=== PATIENT | male | born 1960 | race African-American/Black ===

== ENCOUNTER 2019-09-25 19:28 | Emergency (ER) | payer MEDICARE, MEDICAID, SELFPAY ==
[2019-09-25 19:23] VITALS: BP 148/87; PULSE 70; RESP 17; TEMP 36.9; O2SAT 97
--- NOTE | 2019-09-25 19:33 | ED.UPPEXIN ---
HPI - Extremity Injury (Upper) General Chief Complaint: Extremity Injury, Upper <Landen Carr PA-C - Last Filed: 09/26/19 17:44> Stated Complaint: wound <MARIA ANTONIA Cramer Last Filed: 09/26/19 17:44> Time Seen by Provider: 09/25/19 19:37 <Landen Carr PA-C - Last Filed: 09/26/19 17:44> Source: patient <MARIA ANTONIA Cramer Last Filed: 09/26/19 17:44> Mode of arrival: ambulatory <MARIA ANTONIA Cramer Last Filed: 09/26/19 17:44> Limitations: no limitations <MARIA ANTONIA Cramer Last Filed: 09/26/19 17:44> History of Present Illness HPI narrative: Patient presents with chief complaint of wanting evaluation of his right hand after being bit by spider 5 days ago. Patient states that he was at the half-way and told them about his spider bite and left leg swelling but they do nothing for him. He states he finally got them to send him to the emergency department. Patient states that he was treated with antibiotics and a injection which may have been tetanus and he no longer has swelling or redness to the area. Patient states he also has swelling to his left foot which is chronic when he is active because he needs a knee replacement. He states he did a lot of walking the past few days and that is why he has swelling. Patient denies chest pain, shortness of breath, nausea, vomiting,, fever, chills or any other symptoms. <Landen Carr PA-C - Last Filed: 09/26/19 17:44> Related Data Allergies/Adverse Reactions: Allergies Allergy/AdvReac Type Severity Reaction Status Date / Time No Known Allergies Allergy Verified 09/25/19 19:43 <Landen Carr PA-C - Last Filed: 09/26/19 17:44> Review of Systems Review of Systems: Narrative: CONSTITUTIONAL: Denies fever, chills, or sweats. EYES: Denies visual changes, redness, or discharge. ENT: Denies rhinorrhea, congestion, sore throat, or otalgia. CARDIOVASCULAR: Denies chest pain, palpitations, or edema. RESPIRATORY: Denies cough or dyspnea. GASTROINTESTINAL: Denies abdominal pain, nausea, vomiting, or diarrhea. GENITOURINARY: Denies dysuria or hematuria. SKIN: Denies rash or itching. MUSCULOSKELETAL: Reports left leg swelling. denies back pain, joint pain, or myalgia. NEUROLOGIC: Denies headache, numbness, dizziness, or weakness. PSYCHIATRIC: Denies anxiety or depression. <Landen Carr PA-C - Last Filed: 09/26/19 17:44> [facility] Social History Social History: Social History Gender identity (if verbalized by the patient): Male <Landen Carr PA-C - Last Filed: 09/26/19 17:44> Exam Narrative: Exam Narrative: GENERAL: Well-appearing, well-nourished, and in no acute distress. HEAD: Normocephalic, atraumatic. EYES: PERRLA and EOMI. ENT: Nares clear, no rhinorrhea or epistaxis. Mucous membranes moist. Oropharynx without tonsillar hypertrophy exudate or other lesions. Bilateral TMs pearly rose nonbulging NECK: Supple. No adenopathy or masses. No carotid bruits or JVD CHEST: Clear to auscultation. No respiratory distress. No wheezes rales or rhonchi HEART: Regular rate and rhythm. No murmur heard. Normal peripheral pulses. ABDOMEN: Soft, nontender, nondistended, normal active bowel sounds. EXTREMITIES: Normal range of motion. No edema. SKIN: Warm, dry, no rash. There are no signs of insect bite, cellulitis, erythema or ecchymosis noted to the patient's dorsal aspect of the hand where he states he was bitten by a spider. There is mild swelling to the patient lower left extremity. No signs of cellulitis, gout, erythema or ecchymosis. No open wounds or weeping. NEURO: No focal deficits. Alert and oriented x3. PSYCH: Normal mood and affect. <Landen Carr PA-C - Last Filed: 09/26/19 17:44> Course Vital Signs Vital signs: Vital Signs Temperature 36.9 C 09/25/19 19:23 Pulse Rate 70 09/25/19 19:23 Respiratory Rate 17 09/25/19 19:23 Blood Pressure 148/87 H 09/25/19 19:23 Pulse Oximetry 97 02
[2019-09-25] MEDS: IBUPROFEN 400 MG TABLET 800 MG PO (19:46)
== END 2019-09-25 20:14 | disposition home or self-care (01) ==
PROVIDERS: Emergency Provider Emergency Medicine
DX: T63.301A Toxic effect of unspecified spider venom, accidental (unintentional), initial encounter (principal)
CPT/HCPCS: 99283; A9270

== ENCOUNTER 2019-12-12 15:53 | Emergency (ER) | payer MEDICARE, MEDICAID, SELFPAY ==
[2019-12-12 15:57] VITALS: BP 111/66; PULSE 67; RESP 16; TEMP 36.4; O2SAT 99
--- NOTE | 2019-12-12 16:15 | PC.NURSE ---
Pt states he wants to be taken care of and to stay in a good mood. Pt states he wants his L knee wrapped professionally. Pt states he wants to get whatever he can get help with so he is taken care of and able to take care of himself. Pt states he does not want sent all over the place. Pt was at [facility] on 12/05 and given flexeril but did not fill the prescription. Pt was at [facility] 12/06 and given medication for his sinuses but did not fill it. Pt states he went to [facility] [place] and did not get seen due to doctors being out for the day. Pt states he has pain prescriptions but does not have any or does not want to take them. Pt is not being clear in his wants but has said he wants to see pediatric social worker and wants braces.
--- NOTE | 2019-12-12 16:20 | ED.GENADULT ---
HPI - General Adult General Chief complaint: Unspecified Stated complaint: wants to see a social media analyst, no pain management Time Seen by Provider: 12/12/19 15:58 History of Present Illness HPI narrative: Patient presents to the emergency room with undetermined intent. He has papers with him that he keeps waving around. He does say he could not get his medicines for a month or 2. He said that he did live in [place] and now lives in [place]. He said he did just get out of [facility] today. He has no physical complaints. He did request that we check his blood pressure. He cannot seem to focus to answer direct questions, and keeps referring to his papers. The nurse, Teofilo, got him to say that he wanted a meal, something to drink, and some tramadol to last till next Monday. Related Data Allergies Allergy/AdvReac Type Severity Reaction Status Date / Time No Known Allergies Allergy Verified 12/12/19 16:14 Review of Systems Review of Systems: Narrative: unable to get a full ROS because he rambles with his speech. I suspect he is schizophrenic. He does mention, back pain, left knee pain, and that is all I could get from him. [facility] Social History Social History (System 11/20/19 @ 11:58 by Reena Miranda) Gender identity (if verbalized by the patient): Male Exam Narrative: Exam Narrative: GENERAL: Well-appearing, well-nourished, and in no acute distress. He keeps talking and flipping his papers and will not be redirected by the nurses or myself. HEAD: Normocephalic, atraumatic. EYES: PERRLA and EOMI. ENT: Nares clear, no rhinorrhea or epistaxis. Mucous membranes moist. NECK: Supple. CHEST: Clear to auscultation. No respiratory distress. HEART: Regular rate and rhythm. No murmur heard. Normal peripheral pulses. ABDOMEN: Soft, nontender, nondistended, normal active bowel sounds. EXTREMITIES: Normal range of motion. No edema. SKIN: Warm, dry, no rash. NEURO: No focal deficits. Alert and oriented x3. PSYCH: Poor eye contact. Topics are tangential. Const: General: no acute distress and alert Course Course Emergency Course: I went back in the room to tell him that the social media analyst?manager medical was on the phone, and he said he did not want to speak to anybody he does want to be examined, but I told him he would not be able to have a social media analyst after 5 so he accepts the call. Reevaluation(s) Reevaluation #1: Back in the room after the patient talked with our transition social worker, and asked if there was anything else he needed. He said he needed to be examined and had a lot of other issues. But then he went on to talk about the dementia of his 91-year-old 's mother, and how his grandfather was a police manager in [place], and his appointment on Monday with another doctor, and I could not get him to focus on what he needed from me or from the emergency room today. I have asked the nurse to do a final assessment to see whether he could focus on anything in particular before discharge. He is homeless, and has multiple prescriptions with him, but I am unable to obtain a chief complaint or a particular request from him. Date: 12/12/19 Time: 17:09 Vital Signs Vital signs: Vital Signs Temperature 97.6 F 12/12/19 15:57 Pulse Rate 67 12/12/19 15:57 Respiratory Rate 16 12/12/19 15:57 Blood Pressure 111/66 12/12/19 15:57 Pulse Oximetry 99 12/12/19 15:57 Temperature 97.6 F 12/12/19 15:57 Pulse Rate 67 12/12/19 15:57 Respiratory Rate 16 12/12/19 15:57 Blood Pressure 111/66 12/12/19 15:57 Pulse Oximetry 99 12/12/19 15:57 Medical Decision Making [facility] Narrative Medical decision making narrative: The patient presents with multiple papers and rambling speech. The nurse was unable to obtain a chief complaint, and neither was. He has used the bathroom talked on the phone requesting food, and appears quite stable. He has been here before for knee and back pain. He sees a chronic pa
--- NOTE | 2019-12-12 16:56 | PCCCNOTE ---
Spoke with patient per phone. Patient was not very clear on what he is needing from Care Coordination. He has unorganized thoughts. I questioned him re: spouse. He stated she was in [place] and he doesn't know what she is doing now. Discussed with him homeless shelters and that he needed either cab fare or bus pass to get him to [facility]. CC told him that I could give him a list on homeless shelters, but he would have to call them and make his own arrangements. Also told him I could give him bus tokens to get to [facility]. Spoke with patient's nurse, Devyn, and provided her the list of homeless shelters and bus tokens to give to the patient.
--- NOTE | 2019-12-12 17:19 | PC.NURSE ---
pt given list of homeless shelters, food, and bus tokens
== END 2019-12-12 17:57 | disposition home or self-care (01) ==
PROVIDERS: Emergency Provider Emergency Medicine
DX: Z76.5 Malingerer [conscious simulation] (principal); G89.29 Other chronic pain; Z59.0 Homelessness
CPT/HCPCS: 99283

== ENCOUNTER 2020-11-17 13:50 | Outpatient (CLI) | payer MEDICARE, MEDICAID, SELFPAY ==
--- NOTE | ~2020-11-17 | XR_ITS ---
EXAMINATION: XR ankle LT 2V, XR tibia fibula LT 2V DATE: 11/17/2020 14:41 INDICATION: Left lower leg pain. TECHNIQUE: 1. Anteroposterior and lateral views of the left tibia and fibula were obtained. 2. Anteroposterior and lateral views of the left ankle were obtained. COMPARISON: None. FINDINGS: Bone alignment is normal. No acute fracture. Osseous excrescence along the posterior medial aspect of the distal metadiaphyseal region of the left fibula which could represent either a sessile osteochon droma, old healed fracture or heterotopic ossification related to chronic soft tissue injury. Polyart icular osteoarthritis, moderate severity at the left first metacarpophalangeal joint and likely mild to moderate severity at the medial and lateral compartments of the left knee. Additional mild osteoar thritis at the tibiotalar joint. No left ankle joint effusion. Fatty atrophy of the musculature of th e left calf. Soft tissue swelling with subcutaneous edema about the distal lower leg and about the an kle. Small plantar calcaneal spur. IMPRESSION: 1. Indolent appearing osseous excrescence at the distal fibula which could represent either an osteoc hondroma or sequela of old trauma. 2. Polyarticular osteoarthritis, moderate at the first metatarsophalangeal joint and mild to moderate at the medial and lateral components of the left knee. Reviewed, dictated and finalized at location A. IMPRESSION: 1. Indolent appearing osseous excrescence at the distal fibula which could repr esent either an osteochondroma or sequela of old trauma. 2. Polyarticular osteoarthritis, moderate at the first metatarsophalangeal join t and mild to moderate at the medial and lateral components of the left knee.
== END 2020-11-17 13:51 | disposition home or self-care (01) ==
PROVIDERS: PCP Internal Medicine; Visit Provider Internal Medicine
DX: M19.072 Primary osteoarthritis, left ankle and foot (principal); M17.12 Unilateral primary osteoarthritis, left knee
CPT/HCPCS: 73590; 73600

== ENCOUNTER 2020-11-17 14:45 | Emergency (ER) | payer MEDICARE, MEDICAID, SELFPAY ==
--- NOTE | ~2020-11-17 | US_ITS ---
EXAMINATION: US venous doppler [facility] DATE: 11/17/2020 17:27 INDICATION: Left lower limb pain. TECHNIQUE: Grayscale ultrasound images without and with compression and Doppler ultrasound images of the left lower extremity veins were obtained. COMPARISON: None. FINDINGS: The visualized portions of left common femoral vein, profunda (deep) femoral vein, femoral vein, popl iteal vein, peroneal veins, posterior tibial veins, and greater saphenous vein outflow are patent. Th ere is a small Amanda's cyst. IMPRESSION: 1. No deep venous thrombosis. 2. Small Amanda's cyst. Reviewed, dictated and finalized at location A.
[2020-11-17 16:19] VITALS: BP 148/85; PULSE 82; RESP 18; TEMP 35.9; O2SAT 99
--- NOTE | 2020-11-17 16:51 | PC.NURSE ---
ED studio operations engineer in charge at bedside with social resources for pt, informing pt that we do not give out bus passes.
[2020-11-17 17:00] VITALS: BP 177/94; PULSE 77
--- NOTE | 2020-11-17 17:12 | PC.NURSE ---
Pt in ultrasound.
--- NOTE | 2020-11-17 17:46 | PC.NURSE ---
ED charge master coordinator susie at bedside with pt community resources.
[2020-11-17] MEDS: KETOROLAC 30 MG/ML VIAL (*BKC) IM (18:12)
[2020-11-17 18:13] VITALS: BP 159/93; BP 164/93; BP 166/93; PULSE 79; PULSE 83; RESP 18; O2SAT 100
--- NOTE | 2020-11-17 19:13 | ED.GENADULT ---
HPI - General Adult General Chief complaint: Extremity Problem,Nontraumatic Stated complaint: lt leg pain Time Seen by Provider: 11/17/20 16:32 Source: patient Mode of arrival: ambulatory Limitations: no limitations History of Present Illness HPI narrative: Patient presents with chief complaint left lower leg pain that has been worsening over the past few days. Patient states he has been having issues with the knee for months and has been managed by his primary care and clerical support specialist. Patient states that he saw his clerical support specialist 2 days ago and had fluid drained from the leg. He reports a history of a Amanda's cyst. Patient states that he was here for an x-ray today ordered by his primary care but he couldn't take it anymore and decided to come to the emergency department. He denies fever, chills, nausea, vomiting, new falls or any other symptoms. Related Data Allergies Allergy/AdvReac Type Severity Reaction Status Date / Time No Known Allergies Allergy Verified 11/17/20 16:23 Review of Systems Review of Systems: Narrative: CONSTITUTIONAL: Denies fever, chills, or sweats. EYES: Denies visual changes, redness, or discharge. ENT: Denies rhinorrhea, congestion, sore throat, or otalgia. CARDIOVASCULAR: Denies chest pain, palpitations, or edema. RESPIRATORY: Denies cough or dyspnea. GASTROINTESTINAL: Denies abdominal pain, nausea, vomiting, or diarrhea. GENITOURINARY: Denies dysuria or hematuria. SKIN: Denies rash or itching. MUSCULOSKELETAL: Reports lower leg pain denies back pain, joint pain, or myalgia. NEUROLOGIC: Denies headache, numbness, dizziness, or weakness. PSYCHIATRIC: Denies anxiety or depression. [facility] Social History Social History (System 11/20/19 @ 11:58 by Reena Miranda) Gender identity (if verbalized by the patient): Male Exam Narrative: Exam Narrative: GENERAL: Well-appearing, well-nourished, and in no acute distress. HEAD: Normocephalic, atraumatic. EYES: PERRLA and EOMI. NECK: Supple. No adenopathy or masses. CHEST: Clear to auscultation. No respiratory distress. No wheezes rales or rhonchi HEART: Regular rate and rhythm. No murmur heard. Normal peripheral pulses. EXTREMITIES: No edema or erythema. Patient reports pain with palpation of the leg. There are healed scars Patient is moving the leg without signs of difficulty or distress. Patient able to weight-bear. SKIN: Warm, dry, no rash. NEURO: No focal deficits. Alert and oriented x3. PSYCH: Normal mood and affect. Course Vital Signs Vital signs: Vital Signs Temperature 96.6 F L 11/17/20 16:19 Pulse Rate 82 11/17/20 16:19 Respiratory Rate 18 11/17/20 16:19 Blood Pressure 148/85 H 11/17/20 16:19 Pulse Oximetry 99 11/17/20 16:19 Temperature 96.6 F L 11/17/20 16:19 Pulse Rate 79 11/17/20 18:13 Respiratory Rate 18 11/17/20 18:13 Blood Pressure 159/93 H 11/17/20 18:13 Pulse Oximetry 100 11/17/20 18:13 Medical Decision Making MDM Narrative Medical decision making narrative: Patient is making all types of frequencies while in the emergency room not related to his condition. Patient is requesting travel vouchers, bus passes, food, community resources,etc. patient also urinating in his sink. Patient does not have a DVT. Patient presents continue to follow-up with his primary care provider or clerical support specialist for further management of his leg pain. There is no signs of any edema suggestive of CHF. Patient denies chest pain or shortness of breath. Patient does not have signs of venous stasis dermatitis or cellulitis. Vital Signs Vital Signs: Vital Signs Temperature 96.6 F L 11/17/20 16:19 Pulse Rate 82 11/17/20 16:19 Respiratory Rate 18 11/17/20 16:19 Blood Pressure 148/85 H 11/17/20 16:19 Pulse Oximetry 99 11/17/20 16:19 Temperature 96.6 F L 11/17/20 16:19 Pulse Rate 79 11/17/20 18:13 Respiratory Rate 18 11/17/20 18:13 Blood Pressure 159/93 H
== END 2020-11-17 18:14 | disposition home or self-care (01) ==
PROVIDERS: Emergency Provider Emergency Medicine; PCP Internal Medicine
DX: M79.662 Pain in left lower leg (principal); M71.22 Synovial cyst of popliteal space [Baker], left knee
CPT/HCPCS: 93971; 96372; 99284; J1885

== ENCOUNTER 2021-04-01 01:50 | Emergency (ER) | payer MEDICARE, MEDICAID, SELFPAY ==
--- NOTE | ~2021-04-01 | XR_ITS ---
XR knee LT min 4V DATE: 04/01/2021 04:23 INDICATION: Work injury. Left knee pain. TECHNIQUE: 4 views COMPARISON: None FINDINGS: There is tricompartment osteoarthritis, with particularly prominent periarticular spurring at the patellofemoral joint. No fracture or dislocation, radiopaque intra-articular loose body or chondrocalcinosis is evident. Mi ld suprapatellar knee joint effusion is not excluded. No periosteal reaction or bone destruction. IMPRESSION: Tricompartment osteoarthritis Reviewed, dictated and finalized at location A.
--- NOTE | ~2021-04-01 | XR_ITS ---
XR hip RT 2V w AP pelvis DATE: 04/01/2021 04:23 INDICATION: Right hip pain. Work injury. TECHNIQUE: AP pelvis. AP and lateral views of right hip. COMPARISON: None FINDINGS: There is multilevel degenerative disc disease of the lumbar spine. The pubic symphysis and sacroiliac joints are intact. No recent pelvic fracture or bone destruction i s evident. No fracture or dislocation, avascular necrosis or bone destruction of the right hip. IMPRESSION: Multilevel degenerative disc disease of the lumbar spine No pelvic or right hip recent fracture or dislocation Reviewed, dictated and finalized at location A.
--- NOTE | ~2021-04-01 | XR_ITS ---
XR soft tissue neck DATE: 04/01/2021 04:23 INDICATION: Neck pain, soreness TECHNIQUE: AP and lateral views COMPARISON: 04/01/2021 CT cervical spine FINDINGS: No prevertebral soft tissue swelling or emphysema. Normal epiglottis. Normal tracheal air c olumn. No cervical soft tissue mass or significant abnormal calcification is evident. There is straightening of the cervical spine, which may be due to muscle spasm. There is a prominent degenerative disc disease at C4-5. Uncovertebral joint spurring is noted in the mid and lower cervical spine. IMPRESSION: Straightening of cervical spine and mild to moderate cervical spondylosis Reviewed, dictated and finalized at location A. IMPRESSION: Straightening of cervical spine and mild to moderate cervical spond ylosis
--- NOTE | ~2021-04-01 | CT_ITS ---
EXAMINATION: CT cervical spine wo con DATE: 04/01/2021 06:35 INDICATION: Left neck pain since December 2020 TECHNIQUE: Computed tomography (CT) of the cervical spine was performed without intravenous contrast. Automated exposure control and iterative reconstruction technique were employed. Exam dose: 500.07 mGy-cm total exam DLP. COMPARISON: 04/01/2021 soft tissue neck FINDINGS: There is mild reversal cervical curvature which may be due to positioning and/or muscle spa sm. C1 and C2 are normally aligned and the odontoid process is intact. No fracture or dislocation or locked facet or vertebral soft tissue swelling. There is moderately severe degenerative disc disease at C4-5 with anterior and posterior spurring. There is uncovertebral joint spurring at C3-4, C4-5, C5-C6 and C6-7, particularly prominent on the le ft at C4-5 and C5-6. No cervical mass lesion or lymphadenopathy is evident. The thyroid gland appears unremarkable. No sup erior mediastinal mass lesion or adenopathy is evident. The lung apices are clear. IMPRESSION: Mild reversal cervical curvature which may be due to positioning and/or muscle spasm Moderately severe degenerative disc disease at C4-5 Reviewed, dictated and finalized at Location A. Reviewed, dictated and finalized at location A. IMPRESSION: Mild reversal cervical curvature which may be due to positioning a nd/or muscle spasm Moderately severe degenerative disc disease at C4-5
[2021-04-01 01:52] VITALS: BP 119/51; PULSE 98; RESP 18; TEMP 36.2; O2SAT 98
[2021-04-01 05:16] VITALS: BP 112/65; PULSE 85; O2SAT 94
[2021-04-01] MEDS: KETOROLAC (*BKC) 60 MG/2 ML VIAL IM (06:08)
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
--- NOTE | 2021-04-01 06:58 | PC.NURSE ---
Pt. standing at nursing station requesting discharge instructions. RN told pt. to return to . pt. walked out of of ER mumbling jargon and left. ERP made aware and primary nurse.
== END 2021-04-01 07:02 | disposition left against medical advice (07) ==
LOC: ANHED 05:53
PROVIDERS: Emergency Provider General Practice; PCP Internal Medicine
DX: M25.562 Pain in left knee (principal); G89.29 Other chronic pain; M25.551 Pain in right hip; M54.2 Cervicalgia; F20.9 Schizophrenia, unspecified
CPT/HCPCS: 70360; 72125; 73502; 73564; 96372; 99284; J1885

== ENCOUNTER 2021-05-19 00:37 | Emergency (ER) | payer MEDICARE, MEDICAID, SELFPAY ==
[2021-05-19 00:43] VITALS: BP 144/80; PULSE 91; RESP 18; TEMP 36.6; O2SAT 99
[2021-05-19 02:18] VITALS: BP 124/78; PULSE 84; RESP 17; TEMP 36.4; O2SAT 96
[2021-05-19 02:46] VITALS: BP 122/70; PULSE 82; RESP 15; O2SAT 94
[2021-05-19 03:39] VITALS: BP 141/83; PULSE 78; RESP 18; O2SAT 97
--- NOTE | 2021-05-19 04:10 | ED.GENADULT ---
HPI - General Adult General Chief complaint: Fall Stated complaint: left knee, right neck side pain, Time Seen by Provider: 05/19/21 03:40 Source: patient and RN notes reviewed Mode of arrival: ambulatory Limitations: no limitations History of Present Illness HPI narrative: This is a 61 year old male who presents for evaluation of neck stiffness and back stiffness. Patient reports he has chronic neck and chronic back pain . He normally takes oxycodone and flexeril for his chronic pain but he has run out. He reports he has an appointment on Monday. He was sleeping when I went to assess. Patient denies limb weakness, numbness or tingling. He denies abdominal, nausea, vomiting, hematuria , urinary retention. Related Data Home Medications Medication Instructions Recorded Confirmed glipizide mg 04/01/21 hydrochlorothiazide 04/01/21 metformin mg 04/01/21 Allergies Allergy/AdvReac Type Severity Reaction Status Date / Time acetaminophen [From Vicodin] Allergy Hives Verified 05/19/21 02:26 amoxicillin Allergy Rash Verified 05/19/21 02:26 hydrocodone [From Vicodin] Allergy Hives Verified 05/19/21 02:26 Penicillins Allergy Itching Verified 05/19/21 02:26 Review of Systems Review of Systems: All systems reviewed & are unremarkable except as noted in HPI and below PMFSH Past Medical History Medical History (Updated 05/19/21 @ 04:17 by Echo Blackmon MD) Chronic neck and back pain Schizophrenia Surgical History Surgical History (Updated 04/01/21 @ 07:04 by Echo Blackmon MD) No pertinent past surgical history Social History Social History Gender identity (if verbalized by the patient): Male Sexual Orientation (if Verbalized by the Patient): Straight or Heterosexual Exam Const: General: no acute distress and alert Orientation/consciousness: patient oriented x3 HENMT: Head: normocephalic and atraumatic Mouth: Yes Normal oral and palatal mucosa present, Yes lip normal, Yes oropharynx normal and Yes moist mucous membranes Eyes: Pupils: Equal, round and reactive pupils present EOM: EOMs intact bilaterally Resp: Effort & Inspection: normal respiratory effort and no retractions Auscultation: clear to auscultation bilaterally Cardio: Rate: regular rate Rhythm: regular rhythm Heart sounds: no murmurs GI: GI Palp: Yes Soft to palpation, No Tenderness to palpation present (GI), No Guarding due to palpation present (GI) and No Rigid due to palpation Auscultation: normal bowel sounds Back/Spine/Pelvis: Back: no CVA tenderness Skin: General skin exam: normal color Rashes: no rashes Neuro: General: patient oriented x3, moves all extremities and CN's II-XI intact bilaterally Psych: Mental Status: mental status grossly normal Affect: normal affect Course Reevaluation(s) Reevaluation #1: PAtient has been sleeping. I discussed He will be prescribed flexeril but he can follow up with PCP regarding his oxycodone. Date: 05/19/21 Time: 04:16 Vital Signs Vital signs: Vital Signs Temperature 97.8 F 05/19/21 00:43 Pulse Rate 91 05/19/21 00:43 Respiratory Rate 18 05/19/21 00:43 Blood Pressure 144/80 H 05/19/21 00:43 Pulse Oximetry 99 05/19/21 00:43 Temperature 97.5 F L 05/19/21 02:18 Pulse Rate 78 05/19/21 04:41 Respiratory Rate 18 05/19/21 04:41 Blood Pressure 124/73 05/19/21 04:41 Pulse Oximetry 98 05/19/21 04:41 Medical Decision Making Vital Signs Vital Signs: Vital Signs Temperature 97.8 F 05/19/21 00:43 Pulse Rate 91 05/19/21 00:43 Respiratory Rate 18 05/19/21 00:43 Blood Pressure 144/80 H 05/19/21 00:43 Pulse Oximetry 99 05/19/21 00:43 Temperature 97.5 F L 05/19/21 02:18 Pulse Rate 78 05/19/21 04:41 Respiratory Rate 18 05/19/21 04:41 Blood Pressure 124/73 05/19/21 04:41 Pulse Oximetry 98 05/19/21 04:41 Discharge Plan Discharge Clinic
[2021-05-19] MEDS: CYCLOBENZAPRINE HCL 10 MG TABLET PO (04:17)
[2021-05-19 04:41] VITALS: BP 124/73; PULSE 78; RESP 18; O2SAT 98
== END 2021-05-19 04:43 | disposition home or self-care (01) ==
PROVIDERS: Emergency Provider General Practice; PCP Internal Medicine
DX: M54.2 Cervicalgia (principal); M54.9 Dorsalgia, unspecified; G89.29 Other chronic pain; E11.9 Type 2 diabetes mellitus without complications; Z79.84 Long term (current) use of oral hypoglycemic drugs
CPT/HCPCS: 99283; A9270

== ENCOUNTER 2021-05-20 00:55 | Emergency (ER) | payer MEDICARE, MEDICAID, SELFPAY ==
[2021-05-20 01:00] VITALS: BP 142/72; PULSE 88; RESP 18; TEMP 36.4; O2SAT 100
--- NOTE | 2021-05-20 01:23 | PC.NURSE ---
Pt not in waiting room when ready to be roomed. Pt was seen walking out of doors after triage talking to another visitor.
[2021-05-20 03:00] VITALS: BP 138/74; PULSE 99; RESP 20; O2SAT 97
--- NOTE | 2021-05-20 03:32 | ED.DENTAL ---
HPI - Dental/Oral General Chief complaint: Dental/Oral Stated complaint: dental issues Time Seen by Provider: 05/20/21 03:07 Source: patient and RN notes reviewed Mode of arrival: ambulatory Limitations: no limitations History of Present Illness HPI Narrative: This is a 61 year old male with history of chronic pain who presents for evaluation of oral issues. Patient reports that his is having yeast infection and he thinks he is giving them to her. He states that his dentures are fitting tight as well. He has no wounds. He denies penile discharge. He also states he was seen her last night for his chronic knee and neck pain but he was not given a Toradol shot. Patient states he fell 1 week ago and he was evaluated at another facility. Patient has been seen in multiple ERs over the past week. Related Data Home Medications Medication Instructions Recorded Confirmed glipizide mg 04/01/21 hydrochlorothiazide 04/01/21 metformin mg 04/01/21 Allergies Allergy/AdvReac Type Severity Reaction Status Date / Time acetaminophen [From Vicodin] Allergy Hives Verified 05/19/21 02:26 amoxicillin Allergy Rash Verified 05/19/21 02:26 hydrocodone [From Vicodin] Allergy Hives Verified 05/19/21 02:26 Penicillins Allergy Itching Verified 05/19/21 02:26 Review of Systems Review of Systems: All systems reviewed & are unremarkable except as noted in HPI and below PMFSH Past Medical History Medical History (Updated 05/20/21 @ 03:42 by Echo Blackmon MD) Chronic neck and back pain Schizophrenia Surgical History Surgical History (Updated 04/01/21 @ 07:04 by Echo Blackmon MD) No pertinent past surgical history Social History Social History Gender identity (if verbalized by the patient): Male Sexual Orientation (if Verbalized by the Patient): Straight or Heterosexual Exam Const: General: no acute distress and alert Orientation/consciousness: patient oriented x3 HENMT: Face and sinus: face symmetric Mouth: Yes lip normal, Yes tongue normal and No restricted motion Teeth and gingiva: edentulous and other (upper gingiva with mild small patch of white , ) Eyes: EOM: EOMs intact bilaterally Resp: Effort & Inspection: normal respiratory effort Skin: General skin exam: normal color Rashes: no rashes Neuro: General: patient oriented x3, moves all extremities and CN's II-XI intact bilaterally Gait exam (Neuro): Normal gait present Extrem: General: normal to inspection Psych: Mental Status: mental status grossly normal Affect: normal affect Course Reevaluation(s) Reevaluation #1: Patient is not in acute distress.He is able to ambulate without limp or issue. I do not believe he needs to get toradol at this time. I am concerned he is going around to multiple hospitals asking for medication. I discussed he needs to see his dentist about his dentures. Date: 05/20/21 Time: 03:40 Vital Signs Vital signs: Vital Signs Temperature 97.5 F L 05/20/21 01:00 Pulse Rate 88 05/20/21 01:00 Respiratory Rate 18 05/20/21 01:00 Blood Pressure 142/72 H 05/20/21 01:00 Pulse Oximetry 100 05/20/21 01:00 Temperature 97.5 F L 05/20/21 01:00 Pulse Rate 99 05/20/21 03:00 Respiratory Rate 20 05/20/21 03:00 Blood Pressure 138/74 05/20/21 03:00 Pulse Oximetry 97 05/20/21 03:00 Discharge Plan Discharge Clinical Impression: Chronic neck pain, Chronic knee pain, Aphthous ulcer Patient Disposition: Home, Self-Care Condition: Stable Instructions: Antibiotic Form, Canker Sores (ED) Additional Instructions: Follow up with your dentist regarding your denture concerns. Follow up with your primary care provider. I have prescribed medication to treat for your concern of yeast infection in your mouth Prescriptions: New nystatin 100,000 unit/mL suspension 1 ml buccal QID 7 Days Qty: 28 RF: 0 No Action
== END 2021-05-20 03:56 | disposition home or self-care (01) ==
PROVIDERS: Emergency Provider General Practice; PCP Internal Medicine
DX: K12.0 Recurrent oral aphthae (principal); M25.569 Pain in unspecified knee; M54.2 Cervicalgia; G89.29 Other chronic pain; Z79.84 Long term (current) use of oral hypoglycemic drugs
CPT/HCPCS: 99283

== ENCOUNTER 2025-04-18 18:07 | Emergency (ER) | payer MEDICARE, MEDICAID, SELFPAY ==
--- OUTSIDE RECORDS SUMMARY | 2022-07-08 16:53 | XMS_ITS | Encounter Summary ---
Author Organization [facility] Address [address] [place] [address] Care Team Providers Care Powder Coat Painter Name Role Phone Unavailable Primary Care Provider Unavailabl e Encounter Details Date Type Department Care Team (Late st Contact Info) Description 07/08/2022 3:53 PM COUNSELING CASE MANAGER Hospital Encounter [facility] [address] [place] [address] Brian Blair MD [facility] [place] [address] Concrete Mixer Truck Driver Care Social History Tobacco Use Types Packs/Day Years Used Date Smoking Tobacco: Some Days Cigarettes 0.3 15 Cigars Smokeless Tobacco: Never Comments:Smokes butts that h e finds on the ground or if people give him one Alcohol Use Standard Drinks/Week Comments Not Currently 0 (1 standard drink = 0.6 oz pur e alcohol) Sex and Gender Information Value Date Recorded Sex Assigned at Not on file Legal Sex Male 5:48 PM COUNSELING CASE MANAGER Gender Identity Not on file Sexual Orientation Not on file documented as of this encounter Functional Status * Is person deaf or have serious hearing difficulty? Answer Date of Assessment Author No 11/11/2019 10:45 AM Kirstie Al RN * Is person blind or have serious difficulty seeing? Answer Date of Assessment Author No 11/11/2019 10:45 AM Kirstie Al RN * Does person have serious difficulty walking/climbing stairs? Answer Date of Assessment Author No 11/11/2019 10:45 AM Kirstie Al RN * Does person have difficulty dressing/bathing? Answer Date of Assessment Author No 11/11/2019 10:45 AM Kirstie Al RN * Does person have difficulty doing errands alone? Answer Date of Assessment Author No 11/11/2019 10:45 AM Kirstie Al RN documented as of this encounter Mental Status * Does person have difficulty concentrating/remembering/making decisions? Answer Entry Date Author No 11/11/2019 10:45 AM Kirstie Al RN documented in this encounter Plan of Treatment Not on file documented as of this encounter Visit Diagnoses Not on filedocumented in this encounter
--- OUTSIDE RECORDS SUMMARY | 2022-07-08 16:53 | XMS_ITS | Encounter Summary ---
Author Organization [facility] Address [address] [place] [address] Care Team Providers Care Customer Service Representative Teller Name Role Phone Unavailable Primary Care Provider Unavailabl e Encounter Details Date Type Department Care Team (Late st Contact Info) Description 07/08/2022 3:53 PM STAFFING ASSOCIATE Hospital Encounter [facility] [address] [place] [address] Brian Blair MD [facility] [place] [address] Construction Electrician Care Social History Tobacco Use Types Packs/Day [...] on file Legal Sex Male 5:48 PM STAFFING ASSOCIATE Gender Identity Not on file Sexual Orientation [...]
--- OUTSIDE RECORDS SUMMARY | 2025-04-18 18:09 | XMS_ITS | Clinical Summary ---
Author Organization [email or web address] Address [address] [place] [address] Care Team Providers Care Fuel Efficient Automobile Designer Name Role Phone Unavailable Primary Care Provider Unavailabl e Source Comments [email or web address],non-owned Affiliates and Associated Physician Practices is amultiple site organization consisting of ambulatory clinics and hospital sitesin [place], [place]. This disclosure is being madepursuant to the Care Everywhere program and may not contain all information available regarding this patient. Last updated 18.[email or web address] Allergies Active Allergy Reactions Criticality Noted Date Comments Amoxicillin Systemic 10/29/2019 Hydrocodone Systemic Medium 10/29/2019 Medications * This document contains information received from the source organization and may not represent a complete record from that organization. * Be aware that medications may not be up to date on this document. Alwaysverify current medications with the patient. lisinopril (PRINIVIL; ZESTRIL) 20 MG tabletIndicati ons:Hypertensi on Take 20 mg by mouth once daily Active metFORMIN (GLUCOPHAGE) 1000 MG tabletIndicati ons:Type 2 Diabetes Mellitus Take 1,000 mg by mouth at bedtime Active triamcinolone acetonide (KENALOG) 0.1 % creamIndicatio ns:Dermatitis Apply to affected area 2 times daily Apply to aamir hands Reasons: Skin Inflammation Active hydroCHLOROthi azide (HYDRODIURIL) 25 MG tabletIndicati ons:Hypertensi on Take 25 mg by mouth once daily Active albuterol HFA (PROVENTIL;DRE TOLIN;PROAIR) 108 (90 Base) MCG/ACT inhalerIndicat ions:Asthma Inhale 2 puffs by mouth every 6 hours as needed Reasons: Asthma Active acetaminophen (TYLENOL) 325 MG tablet Take 2 (two) tablets by mouth every 6 hours as needed for Fever or Pain Maximum allowable Acetaminophen amount = 4 Grams (4000 mg) / 24 hours. 30 tablet 1 Active ibuprofen (MOTRIN) 600 MG tablet Take 1 (one) tablet by mouth every 6 hours as needed for Pain 30 tablet 1 Active lidocaine (LIDODERM) 5 % patch Apply 1 (one) patch to skin once daily 12 patch 1 Active Active Problems Problem Noted Date Diagnosed Date Schizoaffective disorder, bipolar type 0 Social History Tobacco Use Types Packs/Day Years Used Date Smoking Tobacco: Some Days Cigarettes 0.3 15 Cigars Smokeless Tobacco: Never Tobacco Cessation:Ready to Q uit: No; Counseling Given: Yes Comments:Smokes butts that he finds on the ground or if people give him one Alcohol Use Standard Drinks/Week Comments Not Currently 0 (1 standard drink = 0.6 oz pur e alcohol) Sex and Gender Information Value Date Recorded Sex Assigned at Not on file Legal Sex Male 5:48 PM HAUNTED HISTORY TOUR GUIDE Gender Identity Not on file Sexual Orientation Not on file Last Filed Vital Signs Vital Sign Reading Time Taken Comments Blood Pressure 138/79 04/13/2021 1:04 AM CDT Pulse 88 04/13/2021 1:04 AM CDT Temperature 36.8 C (98.2 F) 04/13/2021 1:04 AM CDT Respiratory Rate 18 04/13/2021 1:04 AM CDT Oxygen Saturation 96% 04/13/2021 1:04 AM CDT Inhaled Oxygen Concentration - - Weight 83.9 kg (185 lb) 04/13/2021 1:04 AM CDT Height 172.7 cm (5' 8) 04/13/2021 1:04 AM CDT Body Mass Index 28.13 04/13/2021 1:04 AM CDT Plan of Treatment Health Maintenance Due Date Last Done Comments COLOGUARD (AGES 45-75) - COLON CA SCREENING 1962 COLON MONITORING 1962 COLONOSCOPY - COLON CA SCREENING 1962 CT COLONOGRAPHY - COLON CA SCREENING 1962 Colorectal Cancer Screening 1962 FIT - COLON CA SCREENING 1962 FLEX SIG - COLON CA SCREENING 1962 HIV SCREENING 1977 DTAP/TDAP/TD VACCINES (1 - Tdap) 1981 PNEUMOCOCCAL VACCINE 50+ (1 of 2 - PCV) 1981 ZOSTER VACCINE (1 of 2) 02/22/2012 COVID-19 VACCINE (1 - season) 2024 MEDICARE AWV CALENDAR YEAR 2024 LIPID TESTING 10/31/2024 11/01/2019 INFLUENZA VACCINE (#1) 2025 05/09/2019 SCREENING FOR DIABETES 08/04/2025 , 07/30/2022, 07/29/2022, Additional history exists Respiratory Syncytial Virus (RSV) Vaccine Pt: or over 60 yrs (1 - 1-dose 75+ series) 2037 HEPATITIS C SCREENING Completed 06/14/2022, 022 HEPATITIS B VACCINE Aged Out No longe r eligible based on patient's age to complete this topic HIB VACCINE Aged Out No longer eligi ble based on patient's age to complete this topic HPV VACCINE Aged Out No longer eligi ble based on patient's age to complete this topic MENINGOCOCCAL (Group B) VACCINE SHARED DECISION-MAKING Aged Out No longer eligible based on patient's age to complete this topic MENINGOCOCCAL GROUPS A/C/Y/W VACCINE Aged Out No longer eligible based on patient's age to complete this topic Procedures Procedure Name Priority Date/Time Associated Diagnosis Comments BASIC METABOLIC PANEL (CALCIUM TOTAL) Routine 08/04/2022 3:59 AM HAUNTED HISTORY TOUR GUIDE LIPID PROFILE Routine 11/01/2019 5:56 AM CDT from Last 3 Months or Most Recently Relevant to Health Maintenance Results * (ABNORMAL) BASIC METABOLIC PANEL (CALCIUM TOTAL) (08/04/2022 3:59 AM HAUNTED HISTORY TOUR GUIDE) Glucose 73 70 - 105 mg/dL 08/04/2022 5:49 AM [facility] Sodium 139 136 - 145 mmol/L 08/04/2022 5:49 AM [facility] Potassium 4.1 3.5 - 5.1 mmol/L 08/04/2022 5:49 AM [facility] Chloride 110(H) 98 - 107 mmol/L 08/04/2022 5:49 AM [facility] CO2 22(L) 23 - 31 mmol/L 08/04/2022 5:49 AM [facility] Calcium 8.7 8.4 - 10.4 mg/dL 08/04/2022 5:49 AM [facility] Anion Gap 7(L) 8 - 18 mmol/L 08/04/2022 5:49 AM [facility] BUN 22 8.4 - 25.7 mg/dL 08/04/2022 5:49 AM [facility] Creatinine 1.26(H) 0.72 - 1.25 mg/dL 08/04/2022 5:49 AM [facility] eGFR by CKD-EPI 65(L) >=90 mL/min/1.7 3 m2 08/04/2022 5:49 AM [facility] Blood BLOOD SPECIMEN / Unknown Venipuncture / Unknown 08/04/2022 3:59 AM HAUNTED HISTORY TOUR GUIDE 08/04/2022 5:07 AM [facility] us Provider Unknown LAB - CHEMISTRY ORDERABLES Esther l Result [facility] [address] [place], [place] [id number] * LIPID PROFILE (11/01/2019 5:56 AM CDT) Cholesterol 144 <200 mg/dL 11/01/2019 6:41 AM CDT [facility] Triglycerides 73 <150 mg/dL 11/01/2019 6:41 AM CDT [facility] HDL Cholesterol 44 >40 mg/dL 0 6:41 AM CDT [facility] Chol HDL Ratio 3.3 1.0 - 6.0 11/01/2019 6:41 AM T [facility] LDL Calculated 85 65 - 130 mg/dL 11/01/2019 6:41 AM CDT [facility] VLDL Calculated 15 <=30 mg/dL 0 6:41 AM CDT [facility] Blood BLOOD SPECIMEN / Unknown Lab Venipuncture / Unknown 11/01/2019 5:56 AM CDT 11/01/2019 6:15 AM CDT Narrative [facility] - 11/01/2019 6:41 AM CDT Lipid Profile Comment: CHOLESTEROL LEVEL..................CLINICAL INTERPRETATION LESS THAN 200 MG/DL..............................DESIRABLE 200-239 MG/DL..............................BORDERLINE HIGH GREATER THAN 240 MG/DL................................HIGH LDL-CHOLESTEROL LEVEL..............CLINICAL INTERPRETATION LESS THAN 100 MG/DL................................OPTIMAL 100-129 MG/DL.................................NEAR OPTIMAL GREATER THAN 160 MG/DL...........................HIGH RISK HDL RISK LEVEL GREATER THEN 60 MG/DL............................DECREASED 40-60 MG/DL........................................AVERAGE LESS THAN 40 MG/DL...............................INCREASED TRIGLYCERIDE LEVEL..................CLINICAL INTERPRETATION LESS THAN 150 MG/DL...............................DESIRABLE 150-199 MG/DL...............................BORDERLINE HIGH 200-499 MG/DL..........................................HIGH GREATER THAN 500..................................VERY HIGH THE NATIONAL CHOLESTEROL EDUCATION PROGRAM HAS SET THE ABOVE GUIDELINES (REFERANCE VALUES) FOR CHOLESTEROL AND HDL. RISK ASSOCIATED WITH CHOLESTEROL/HDL RATIOS RISK....................MALE RATIO.............FEMALE RATIO 1/2 AVERAGE.................<3.4.......................<3.3 LOW RISK.................... 4.0 ...................... 3.8 AVERAGE..................... 5.0 ...................... 4.5 2X AVERAGE.................. 9.5 ...................... 7.0 3X AVERAGE...................>23........................>11 us Alexx Gorthy MD LAB - CHEMISTRY ORDERABLES Fi nal Result Performing Organization Address City/State/[facility] Co de Phone Number [facility] [address] from Last 3 Months or Most Recently Relevant to Health Maintenance Insurance [place] - [place] [facility] MANAGED MEDICARE ADV MEDICAID - [facility] MANAGED MEDICARE ADV MANAGED MEDICARE ADV MEDICARE [place] - [place] [facility] MANAGED MEDICARE ADV MANAGED MEDICARE ADV MEDICARE MEDICAID - OUT OF STATE [facility] MANAGED MEDICARE ADV MANAGED MEDICARE ADV MEDICARE MEDICAID - OUT OF STATE [facility] MANAGED MEDICARE ADV MANAGED MEDICARE ADV MEDICARE MEDICAID - OUT OF STATE Member Subscriber Plan / Payer (Ef fective for All Dates) Name:Yue Gregorio Relation to Subscriber:Self Name:YUE GREGORIO Payer ID:Not on file Group ID:Not on file Type:Medicaid Address: [address] MANAGED MEDICARE ADV Member Subscriber Plan / Payer (Ef fective for All Dates) Name:Yue Gregorio Relation to Subscriber:Self Payer ID:[id number] (NAIC) Type:Medicare-Managed Care Address: [address] MANAGED MEDICARE ADV MEDICARE MEDICAID - OUT OF STATE Member Subscriber Plan / Payer (Ef fective for All Dates) Name:Yue Gregorio Relation to Subscriber:Self Name:YUE GREGORIO Payer ID:Not on file Group ID:Not on file Type:Medicaid Address: [address] MANAGED MEDICARE ADV Member Subscriber Plan / Payer (Ef fective for All Dates) Name:Yue Gregorio Relation to Subscriber:Self Payer ID:[id number] (NAIC) Type:Medicare-Managed Care Address: [address] MANAGED MEDICARE ADV MEDICARE MEDICAID - OUT OF STATE [facility] MANAGED MEDICARE ADV Member Subscriber Plan / Payer (Ef fective for All Dates) Name:Yue Gregorio Relation to Subscriber:Self Payer ID:[id number] (NAIC) Type:Medicare-Managed Care Address: [address] MANAGED MEDICARE ADV MEDICARE MEDICAID - OUT OF STATE Advance Directives * Full Code (Latest Code Status on File) Date Activated Date Inactivated Comments 10/29/2019 9:27 PM 11/11/2019 2:18 PM
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
--- OUTSIDE RECORDS SUMMARY | 2025-04-18 18:09 | XMS_ITS | Encounter Summary ---
Author Organization [facility] Healthcare Address [address] [place] [address] Care Team Providers Care Stamps Or Coins Salesperson Name Role Phone Yovani Alonzo MD Primary Care Provider [phone] Samanta Hurst MD Primary Care Provider No, Physician Primary Care Provider Kane Rivas MD Primary Care Provider Catarino Bryant MD Primary Care Provider [phone] Miscellaneous, Not In File Primary Care Provider Unavailable Jeane Mirza NP Primary Care Provider [phone] Kane Rivas MD Primary Care Provider [phone] Encounter Details Date Type Department Care Team (Late st Contact Info) Description 06/04/2019 Documentation [facility] Physical Therapy [address] [place] [id number] Sulma Jackson Social History Tobacco Use Types Packs/Day Years Used Date Smoking Tobacco: Every Day Cigarettes 1.5 30 Started: 06/19/1988; Last attempted to quit: 06/19/2018 Smokeless Tobacco: Former Alcohol Use Standard Drinks/Week Comments Not Currently 0 (1 standard drink = 0.6 oz pur e alcohol) Sex and Gender Information Value Date Recorded Sex Assigned at Not on file 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 Author [facility] Aiyana Roland RN Note: Patient will establish a comfort-function goal and identify the pain level that will allow the patient to perform desired activities and achieve an acceptable quality of life. documented as of this encounter Visit Diagnoses Not on filedocumented in this encounter Additional Health Concerns Infection Onset Date Last Indicated Resolved Time COVID: Suspected 07/27/2023 07/27/2023 07/27/2023 7:12 AM SORORITY MOTHER documented as of this encounter Care Teams Stamps Or Coins Salesperson Relationship Specialty Start Date End Date Yovani Alonzo MD PCP - General 04/18/19 06/26/19 Samanta Hurst MD PCP - General 06/27/19 01/04/20 No, Physician PCP - General 01/05/20 03/31/20 Kane Rivas MD [address] [facility] [address] [facility] [address] [place] [address] PCP - General 04/01/20 12/12/20 Catarino Bryant MD [address] [place] [address] PCP - General 12/13/20 08/28/21 Miscellaneous, Not In File PCP - General 08/29/21 Jeane Mirza MINE MOTOR OPERATOR [address] [address] PCP - General 09/08/21 09/26/21 Kane Rivas MD [address] [facility] [address] [place], [place] [id number] PCP - General 09/27/21 documented as of this encounter
--- OUTSIDE RECORDS SUMMARY | 2025-04-18 18:10 | XMS_ITS | Encounter Summary ---
Author Organization [facility] Facility Care Team Providers Care Teacher Public Health Name Role Phone Yovani Alonzo MD Primary Care Provider [phone] Yamel Gao RN Unavailable [phone] Zoila Rivero LPN Unavailable [phone] No, Physician Primary Care Provider Yovani Juarez MD Primary Care Provider [phone] Yovani Alonzo MD Primary Care Provider [phone] Samanta Hurst MD Primary Care Provider [phone] No, Physician Primary Care Provider Kane Rivas MD Primary Care Provider [phone] Catarino Bryant MD Primary Care Provider [phone] Miscellaneous, Not In File Primary Care Provider Unavailable Jeane Mirza NP Primary Care Provider [phone] Kane Rivas MD Primary Care Provider [phone] Encounter Details Date Type Department Care Team (Latest Contact Info) Description 05/29/2018 Orders Only [facility] ProviderThea MD [address] [place] [id number] Social History Tobacco Use Types Packs/Day Years Used Date Smoking Tobacco: Never Assessed Sex and Gender Information Value Date Recorded Sex Assigned at Not on file 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 Historical Provider [facility] PROCE DURES Final Result * CARDIOLOGY REPORT (05/29/2018 12:00 AM CDT) Anatomical Region Laterality Modality Other Narrative 05/29/2018 12:00 AM CDT Ordered by an unspecified provider. Historical Provider [facility] CARDIAC SERVICES PROCE DURES Final Result documented in this encounter Visit Diagnoses Not on filedocumented in this encounter Additional Health Concerns Infection Onset Date Last Indicated Resolved Time COVID: Suspected 07/27/2023 07/27/2023 07/27/2023 7:12 AM BUILDING CONSTRUCTION TEACHER documented as of this encounter Care Teams Teacher Public Health Relationship Specialty Start Date End Date Yovani Alonzo MD PCP - General 08/22/18 03/31/19 No, Physician PCP - General 04/01/19 04/16/19 Yovani Juarez MD PCP - General 04/17/19 04/17/19 Yovani Alonzo MD PCP - General 04/18/19 06/26/19 Samanta Hurst MD PCP - General 06/27/19 01/04/20 No, Physician PCP - General 01/05/20 03/31/20 Kane Rivas MD [address] [facility] [address] [place] [address] PCP - General 04/01/20 12/12/20 Catarino Bryant MD [address] [place] [address] PCP - General 12/13/20 08/28/21 Miscellaneous, Not In File PCP - General 08/29/21 Jeane Mirza, FINANCIAL AID ADVISOR [address] [address] PCP - General 09/08/21 09/26/21 Kane Rivas MD [address] [facility] [address] [place] [address] PCP - General 09/27/21 Yamel Gao, RN Aviation Boatswain'S Mate 03/11/19 03/11/19 Zoila Rivero LPN [address] [facility] [address] [place] [address] Aviation Boatswain'S Mate 03/20/19 03/20/19 documented as of this encounter
--- OUTSIDE RECORDS SUMMARY | 2025-04-18 18:10 | XMS_ITS | Clinical Summary ---
Author Organization [facility] Address [address] [place] [address] Phone Care Team Providers Care Spice Mixer Name Role Phone Samanta Hurst MD Unavailable [phone] Kane Rivas MD Primary Care Provider [phone] Allergies Active Allergy Reactions Criticality Noted Date Comments Amoxicillin Rash 08/08/2019 Hydrocodone Unknown 10/29/2019 hydrocodone Medications benztropine (COGENTIN) 2 MG Tablet Take 2 mg by mouth daily. 0 11/19/19 18 Active albuterol 108 (90 Base) MCG/ACT Aerosol Solution take 2 Puffs by inhalation every 4 hours as needed. 05/23/20 22 Active atorvastatin (LIPITOR) 10 MG Tablet Take 20 mg by mouth nightly. 05/23/20 22 Active pantoprazole (PROTONIX) 40 MG Tablet Delayed Response Take 40 mg by mouth daily. 05/23/20 22 Active sildenafil citrate (VIAGRA) 50 MG Tablet Take 1 Tablet by mouth daily as needed. 05/23/20 Active amLODIPine (NORVASC) 5 MG Tablet Take 1 Tablet by mouth 2 times daily. 07/30/20 22 Active lidocaine (XYLOCAINE) 5 % Ointment Apply as needed for Pain. Application Site: thorax/chest/abdo men (Description and Location) 240 g 06/23/20 24 Active divalproex (DEPAKOTE ER) 500 MG TABLET SR 24 HRIndications: Manic Phase of Bipolar Mood Disorder Take 1 Tablet by mouth nightly. Indications: Manic Phase of Manic-Depression 30 Tablet 09/28/19 25 Active QUEtiapine Fumarate 400 MG TabletIndicati ons:Schizophre huang Take 1 Tablet by mouth nightly. Indications: Schizophrenia 30 Tablet 09/28/19 25 Active Additional Information Patient taking differently: 500 mgOral NIGHTLY, Indications: Schizophrenia, Reported on 01/08/2025 Blood Glucose Monitoring Suppl (ONE TOUCH ULTRA 2) w/Device Kit USE TO TEST BLOOD SUGAR TWICE A DAY 11/05/19 25 Active cyclobenzaprin e (FLEXERIL) 10 MG Tablet TAKE 1 TABLET BY MOUTH EVERY 8 HOURS NEEDED 12/12/19 24 Active lubiprostone (Amitiza) 24 MCG Capsule Take by mouth 2 times daily (with meals). Active naproxen (NAPROSYN) 500 MG Tablet Take 1 Tablet by mouth 2 times daily as needed for Moderate or more severe pain. 20 Tablet 01/19/20 25 Active HYDROcodone-ac etaminophen (NORCO) 5-325 MG TabletIndicati ons:Left leg pain Take 1 Tablet by mouth every 6 hours as needed for Moderate or more severe pain. 8 Tablet 04/15/20 25 Active oxyCODONE-Acet aminophen (PERCOCET) 10-325 MG Tablet Take 1 Tablet by mouth every 6 hours as needed. 05/10/20 22 025 Discontinu ed(Med List Clean Up) doxycycline hyclate (VIBRAMYCIN) 100 MG Capsule Take 1 Capsule by mouth 2 times daily for 7 days. 14 Capsule 03/30/20 25 025 traMADol (ULTRAM) 50 MG TabletIndicati ons:Pain Take 1 Tablet by mouth every 8 hours as needed for Moderate or more severe pain. Indications: Pain 12 Tablet 04/14/20 25 025 Discontinu ed(Med List Clean Up) Active Problems Problem Noted Date Diagnosed Date Seizures 10/17/2023 Paranoid schizophrenia 10/17/2023 Hypertension 10/17/2023 Diabetes mellitus 10/17/2023 Bipolar 1 disorder 10/17/2023 Bronchitis 10/17/2023 Acute kidney injury 10/16/2023 Paranoid schizophrenia Resolved Problems Problem Noted Date Diagnosed Date Resolved Date Acute blood loss anemia 06/01/2022 11/2 08/2021 Metabolic acidosis 05/30/2022 Sepsis 05/29/2022 07/11/2022 Acute metabolic encephalopathy 05/29/2022 07/11/2022 Community acquired pneumonia 05/29/2022 07/11/2022 Hyponatremia 05/29/2022 07/11/2022 UTI (urinary tract infection) 05/29/2022 07/11/2022 Acute kidney injury (SO) wi th acute tubular necrosis (ATN) 05/29/2022 07/11/2022 Encounters Date Type Department Care Team Description 04/15/2025 2:14 PM CDT - 04/15/2025 4:56 PM CDT [facility] [address] [place] [address] Jose Luis Mera, AIMEE Left leg pain Discharge Disposition: Discharged to home or Selfcare 04/15/2025 12:30 PM CDT - 04/15/2025 2:13 PM CDT Hospital [facility] Ul[facility] [address] [place] [address] Jose Luis Mera, AIMEE Discharge Disposition: Discharged to home or Selfcare 04/15/2025 Travel 04/15/2025 [facility] Admitting [address] [place] [address] Jose Luis Mera PAC Left leg pain (Primary Dx) 04/14/2025 7:15 PM CDT - 04/14/2025 9:46 PM CDT [facility] [address] [place] [address] Jose Luis Mera PAC Left leg pain Discharge Disposition: Discharged to home or Selfcare 04/14/2025 Travel 04/07/2025 Telephone [facility] Emergency [address] [place] [address] Isabel Gonsalves APRN, DOOR CLOSER Follow up 04/03/2025 Telephone [facility] Emergency [address] [place] [address] Toshia Tovar, STRATEGIC PLANNING ANALYST Follow-up (Test results) 03/30/2025 10:19 PM CDT - 03/31/2025 12:09 AM CDT Emergency [facility] Emergency [address] [place] [address] Anton Kent MD Penile discharge Discharge Disposition: Discharged to home or Selfcare 03/30/2025 Travel 02/08/2025 10:30 PM CDT - 02/08/2025 11:40 PM CDT Emergency [facility] Emergency [address] [place] [address] Suhas Newton MD Left shoulder pain Discharge Disposition: Discharged to home or Selfcare 02/08/2025 Travel 01/22/2025 Telephone [facility] [address] [place] [address] Des Vogt MD 01/18/2025 2:42 AM CDT - 01/18/2025 3:20 AM CDT Emergency [facility] Emergency [address] [place] [address] Anton Kent MD Chronic left shoulder pain Discharge Disposition: Discharged to home or Selfcare 01/18/2025 Travel from Last 3 Months Immunizations Immunization Administration Dates Next Due Albumin IV 06/24/2022,,06/15/2022,06/14/2022,06/14/2022,06/13/20 22,06/13/2022 TDAP Vaccine 12/30/2023 Family History Medical History Relation Name Comments Cancer Brother Prostate No Known Problems Father No Known Problems Mother Relation Name Status Comments Brother Alive Father Mother Social History Tobacco Use Types Packs/Day Years Used Date Smoking Tobacco: Former Cigarettes Smokeless Tobacco: Never Tobacco Cessation:Counseling Given: Not Answered Alcohol Use Standard Drinks/Week Comments No 0 (1 standard drink = 0.6 oz pur e alcohol) Has not drank for over a month [facility] Utilities Answer Date Recorded In the past 12 months has th e electric, gas, oil, or water company threatened to shut off services in your home? No 10/17/2023 Hunger Vital Sign Answer Date Recorded Within the past 12 months, y ou worried that your food would run out before you got the money to buy more. Never true 10/17/19 24 Within the past 12 months, t he food you bought just didn't last and you didn't have money to get more. Never true 10/17/2023 PRAPARE - Transportation Answer Date Re corded In the past 12 months, has l ack of transportation kept you from medical appointments or from getting medications? No 09/22 In the past 12 months, has l ack of transportation kept you from meetings, work, or from getting things needed for daily living? No 10/17/2023 Housing Stability Vital Sign Answer Yang e Recorded In the last 12 months, was t here a time when you were not able to pay the mortgage or rent on time? No 10/17/2023 In the last 12 months, how many places have you lived? 1 10/17/2023 In the last 12 months, was t here a time when you did not have a steady place to sleep or slept in a retirement (including now)? No 10/17/2023 Sex and Gender Information Value Date Recorded Sex Assigned at Male 12/14/2024 10:43 PM CDT Legal Sex Male 8:53 PM CDT Gender Identity Male 12/14/2024 10:43 PM CDT Sexual Orientation Not on file Last Filed Vital Signs Vital Sign Reading Time Taken Comments Blood Pressure 156/80 04/15/2025 1:42 PM CDT Pulse 94 04/15/2025 1:42 PM CDT Temperature 36.4 C (97.6 F) 04/15/2025 1:42 PM CDT Respiratory Rate 16 04/15/2025 1:42 PM CDT Oxygen Saturation 97% 04/15/2025 1:42 PM CDT Inhaled Oxygen Concentration - - Weight 99.8 kg (220 lb) 04/15/2025 1:42 PM CDT Height 170.2 cm (5' 7) 04/15/2025 1:42 PM CDT Body Mass Index 34.46 04/15/2025 1:42 PM CDT Plan of Treatment Health Maintenance Due Date Last Done Comments Diabetes: Eye Exam 1962 Diabetes: Foot Exam 1962 Cologuard 2007 Immunochemical Fecal Occult Blood 2007 Zoster Immunization (1 of 2) 02/22/2012 Pneumococcal Immunization (50+ years) (2 of 2 - PCV) 05/09/2020 05/09/2019 Respiratory Syncytial Virus (RSV) Immunization (Adult) (1 - Risk 60-74 years 1-dose series) 2022 SARS-COV-2 Immunization ( - season) 2024 Influenza Immunization (#1) 2025 05/09/2019 Diabetes: Hemoglobin A1c 06/18/2025 025, 02/05/2024, 10/16/2023, Additional history exists Diabetes: Nephropathy Screening 12/17/2025 12/17/2024, 12/17/2024, 11/14/2024, Additional history exists Colonoscopy 01/09/2028 01/08/2025 Colorectal Cancer Screening 01/09/2028 Td Immunization Every 10 Years (Adults With 1 Tdap) 12/29/2033 12/30/2023, 01/30/2022, 05/28/2015 Pneumococcal Immunization Combined Discontinued 05/09/2019 Hepatitis C Virus (HCV) Screening Completed 05/31/2022 DTaP/Tdap/Td Immunization Discontinued 2023, 01/30/2022, 05/28/2015 TdaP Immunization Discontinued 12/30/2023, , 05/28/2015 PSA Discussion Completed 10/21/2024 Hepatitis B Immunization Aged Out No longer eligible based on patient's age to complete this topic Human Papillomavirus (HPV) Immunization Aged Out No longer eligible based on patient's age to complete this topic Meningococcal Immunization (ACWY) Aged Out No longer eligible based on patient's age to complete this topic Rotavirus Immunization Aged Out No lo nger eligible based on patient's age to complete this topic Goals Goal Patient Goal Type Associated Problems Recent Progress Patient-Stated? Author Depression Depression On track(2024 12:21 PM CDT) Yanci Garcia, [facility] Note: Goal/Objective: Decrease depression. Anticipated Time Frame for Goal Completion: 6 months Goal Reviewed with: patient Readiness to change: Ready to change Department associated with goal: [facility] Steps to achieve goal: will attend counseling/psychotherapy sessions at least once monthly, at least 6 sessions, utilizing individual and/or group sessions to express thoughts and feelings. to identify, verbalize and process at least three contributing factors/triggers to anxiety and depression. to identify and verbalize at least three actions/skills to prevent and/or cope with anxiety and depression. to put into action, at least one time weekly, for one month, an action/skill to prevent and or cope with anxiety and depression. 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 Toll Testboard Worker Device Identifier Shelf Expiration Date Model / Serial / Lot Kit Cath 19cm 14.5fr Std Strg 2 Branch Polyu Ptfe Hemosplit Airguard 2 Lumen Kink Resistance - [id number] Implanted:Qty: 1 on 06/23/2022 by Chris Schwab MD at [facility] IMPLANT Right: Chest [employer] 02/17/2023 [id number] / [id number] / [id number] Procedures Procedure Name Priority Date/Time Associated Diagnosis Comments US LEFT DUPLEX LOWER EXTREMITY VEINS Stat with Interpretation 04/15/2025 1:09 PM CDT Left leg pain XR ANKLE 3 OR MORE VIEWS LEFT STAT 04/14/2025 8:46 PM CDT CBC WITH AUTO DIFFERENTIAL STAT 04/14/2025 8:20 PM CDT D-DIMER STAT 04/14/2025 8:20 PM CDT BASIC METABOLIC PANEL W/ CALCIUM TOTAL STAT 04/14/2025 8:20 PM CDT COMPLETE BLOOD COUNT (CBC) WITH DIFF STAT 04/14/2025 8:20 PM CDT CHLAMYDIA & GC DNA PROBE STAT 04/14/2025 8:10 PM CDT CHLAMYDIA & GC DNA PROBE ADULT STAT 04/14/2025 8:10 PM CDT URINALYSIS REFLEX IF INDICATED BY ABNORMAL RESULTS STAT 03/30/2025 11:28 PM CDT CULTURE, URINE STAT 03/30/2025 11:28 PM CDT CHLAMYDIA & GC DNA PROBE STAT 03/30/2025 11:27 PM CDT CHLAMYDIA & GC DNA PROBE ADULT STAT 03/30/2025 11:27 PM CDT UR MICROALBUMIN/CREAT ININE RATIO RANDOM Routine 12/17/2024 12:40 PM CDT 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) Disorder of kidney and ureter Primary hypertension Hyperlipidemia, unspecified hyperlipidemia type Other specified diabetes mellitus with other diabetic kidney complication Radiculopathy, cervical HEMOGLOBIN A1C W/ ESTIMATED GLUCOSE Routine 12/17/2024 12:40 PM CDT 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) Disorder of kidney and ureter Primary hypertension Hyperlipidemia, unspecified hyperlipidemia type Other specified diabetes mellitus with other diabetic kidney complication Radiculopathy, cervical PSA SCREEN Routine 10/21/2024 4:00 PM DATA ENTRY ASSISTANT Encounter for screening for malignant neoplasm of prostate HEPATITIS PANEL ACUTE (AHP) Routine 05/31/2022 12:14 PM CDT from Last 3 Months or Most Recently Relevant to Health Maintenance Results * US LEFT DUPLEX LOWER EXTREMITY VEINS (04/15/2025 1:09 PM CDT) Anatomical Region Laterality Modality vascular Left Ultrasound 04/15/2025 4:26 PM CDT Impressions 04/15/2025 4:28 PM CDT IMPRESSION: No evidence of left lower extremity deep venous thrombosis. A large knee joint effusion is noted. Narrative 04/15/2025 4:28 PM CDT EXAM DESCRIPTION: US LEFT DUPLEX LOWER EXTREMITY VEINS REASON FOR STUDY: Left leg pain TECHNIQUE: Duplex scan using the B-mode, spectral Doppler, and color-flow Doppler of the deep venous system of the left lower extremity was performed. Images stored on PACS. COMPARISON: None FINDINGS: The common femoral, common femoral-saphenous vein confluence, visualized profunda femoral, superficial femoral, and popliteal veins are readily compressible with no intraluminal thrombus on rose scale images. There is normal color and spectral Doppler signal, including augmentation. Greater saphenous vein appears patent. Visualized calf veins are patent. A large knee joint effusion is noted. THIS IS AN ELECTRONICALLY VERIFIED FINAL REPORT 04/15/2025 4:26 PM - Electronically signed by Jcarlos Gudino M.D. KR: BRO Report ID: [id number] Reading Location: [id number] Procedure Note Jcarlos Gudino MD - 04/15/2025 EXAM DESCRIPTION: US LEFT DUPLEX LOWER EXTREMITY VEINS REASON FOR STUDY: Left leg pain TECHNIQUE: Duplex scan using the B-mode, spectral Doppler, and color-flow Doppler of the deep venous system of the left lower extremity was performed. Images stored on PACS. COMPARISON: None FINDINGS: The common femoral, common femoral-saphenous vein confluence, visualized profunda femoral, superficial femoral, and popliteal veins are readily compressible with no intraluminal thrombus on rose scale images. There is normal color and spectral Doppler signal, including augmentation. Greater saphenous vein appears patent. Visualized calf veins are patent. A large knee joint effusion is noted. THIS IS AN ELECTRONICALLY VERIFIED FINAL REPORT 04/15/2025 4:26 PM - Electronically signed by Jcarlos Gudino M.D. KR: BRO Report ID: [id number] Reading Location: [id number] IMPRESSION: No evidence of left lower extremity deep venous thrombosis. A large knee joint effusion is noted. Jose Luis Mera PAC G US ORDERABLES Fi nal Result * XR ANKLE 3 OR MORE VIEWS LEFT (04/14/2025 8:46 PM CDT) Anatomical Region Laterality Modality LOWER EXTREMITY, ankle Left Digital R adiography 04/14/2025 9:14 PM CDT Impressions 04/14/2025 9:17 PM CDT IMPRESSION: No acute osseous abnormality identified. Chronic findings as above. Narrative 04/14/2025 9:17 PM CDT EXAM DESCRIPTION: XR ANKLE 3 OR MORE VIEWS LEFT REASON FOR STUDY: pt c/o lower leg pain with swelling and fluid that started this morning. no injury or hx of surgery TECHNIQUE: Frontal, oblique, and lateral views of the left ankle . COMPARISON: None FINDINGS: BONES/JOINTS: No fracture, malalignment, or suspicious osseous lesion is identified. 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 [id number] diffuse osteoarthritis. SOFT TISSUES: Unremarkable. THIS IS AN ELECTRONICALLY VERIFIED FINAL REPORT 04/14/2025 9:14 PM - Electronically signed by Sandoval Eugene M.D. AR: COLETTE Report ID: [id number] Reading Location: [id number] Procedure Note Sandoval Eugene MD - 04/14/2025 EXAM DESCRIPTION: XR ANKLE 3 OR MORE VIEWS LEFT REASON FOR STUDY: pt c/o lower leg pain with swelling and fluid that started this morning. no injury or hx of surgery TECHNIQUE: Frontal, oblique, and lateral views of the left ankle . COMPARISON: None FINDINGS: BONES/JOINTS: No fracture, malalignment, or suspicious osseous lesion is identified. 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 [id number] diffuse osteoarthritis. SOFT TISSUES: Unremarkable. THIS IS AN ELECTRONICALLY VERIFIED FINAL REPORT 04/14/2025 9:14 PM - Electronically signed by Sandoval Eugene M.D. AR: COLETTE Report ID: [id number] Reading Location: [id number] IMPRESSION: No acute osseous abnormality identified. Chronic findings as above. Jose Luis Mera PAC IMG DIAGNOSTIC ORDER NOÉ Final Result * (ABNORMAL) CBC with Auto Differential (04/14/2025 8:20 PM CDT) WBC 10.05 4.00 - 12.00 10(3)/mcL 04/14/2025 8:23 PM CDT [facility] RBC 4.41 4.40 - 5.80 10(6)/mcL 04/14/2025 8:23 PM CDT [facility] HEMOGLOBIN (HGB) 14.1 13.0 - 16.5 g/dL 04/14/2025 8:23 PM CDT [facility] HEMATOCRIT (HCT) 43.4 38.0 - 50.0 % 04/14/2025 8:23 PM CDT [facility] MCV 98.4(H) 82.0 - 96.0 fL 04/14/2025 8:23 PM CDT [facility] MCH 32.0 26.0 - 32.0 pg 04/14/2025 8:23 PM CDT [facility] MCHC 32.5 31.0 - 36.0 g/dL 04/14/2025 8:23 PM CDT [facility] PLATELET COUNT 147 140 - 440 10(3)/mcL 04/14/2025 8:23 PM CDT [facility] RDW 13.2 11.8 - 15.5 % 04/14/2025 8:23 PM CDT [facility] MPV 10.4 8.0 - 12.6 fL 04/14/2025 8:23 PM CDT [facility] NEUTROPHILS 61.6 40.0 - 68.0 % 04/14/2025 8:23 PM CDT [facility] LYMPHOCYTES 28.6 19.0 - 49.0 % 04/14/2025 8:23 PM CDT [facility] MONOCYTES 7.9 3.0 - 13.0 % 04/14/2025 8:23 PM CDT [facility] EOSINOPHILS 0.6 0.0 - 8.0 % 04/14/2025 8:23 PM CDT [facility] BASOPHILS 0.3 0.0 - 1.0 % 04/14/2025 8:23 PM CDT [facility] IMMATURE GRANULOCYTE 1.0(H) 0.0 - 0.4 % 04/14/2025 8:23 PM CDT [facility] Comment:Immature Granulocyte s includes Metamyelocytes, Myelocytes, and Promyelocytes. ABSOLUTE NEUTROPHILS 6.20(H) 1.40 - 5.30 10(3)/mcL 04/14/2025 8:23 PM CDT [facility] ABSOLUTE LYMPHOCYTES 2.87 0.90 - 3.30 10(3)/mcL 04/14/2025 8:23 PM CDT [facility] ABSOLUTE MONOCYTES 0.79 0.10 - 0.90 10(3)/mcL 04/14/2025 8:23 PM CDT [facility] ABSOLUTE EOSINOPHIL 0.06 0.00 - 0.50 10(3)/mcL 04/14/2025 8:23 PM CDT [facility] ABSOLUTE BASOPHILS 0.03 0.00 - 0.10 10(3)/mcL 04/14/2025 8:23 PM CDT [facility] ABSOLUTE IMMATURE GRANULOCYTE 0.10(H) 0.00 - 0.03 10 (3) mcL. 04/14/2025 8:23 PM CDT [facility] NRBC PER 100 WBC 0 04/14/20 8:23 PM CDT [facility] Blood Venipuncture / Unknown 04/14/2025 8:20 PM CDT 04/14/2025 8:20 PM CDT Jose Luis Mera PAC HEMATOLOGY ORDERABLE S Final Result Performing Organization Address [facility] Co de Phone Number [facility] [address] [place] [address] * (ABNORMAL) D-DIMER [id number] (04/14/2025 8:20 PM CDT) D DIMER 0.50(H) <0.50 mcg/mL FEU 04/14/2025 8:37 PM CDT [facility] Blood Venipuncture / Unknown 04/14/2025 8:20 PM CDT 04/14/2025 8:20 PM CDT Narrative [facility] - 04/14/2025 8:37 PM CDT The FDA has approved this method to exclude the diagnosis of DVT and/or PE at the cutoff value of <0.50 mcg/mL FEU. Jose Luis Mera PAC HEMATOLOGY ORDERABLE S Final Result Performing Organization Address [facility] de Phone Number [facility] [address] [place] [address] * (ABNORMAL) BMP w/ Ca (04/14/2025 8:20 PM CDT) Pathologist [facility] SODIUM 138 136 - 145 mmol/L 04/14/2025 8:37 PM CDT [facility] POTASSIUM 4.4 3.5 - 5.1 mmol/L 04/14/2025 8:37 PM CDT [facility] CHLORIDE 104 98 - 107 mmol/L 04/14/2025 8:37 PM CDT [facility] CO2, VENOUS 24 22 - 30 mmol/L 04/14/2025 8:37 PM CDT [facility] ANION GAP 14.4 <18.0 mmol/L 04/14/2025 8:37 PM CDT [facility] GLUCOSE 129(H) 70 - 99 mg/dL 04/14/2025 8:37 PM CDT [facility] BUN 17 8 - 26 mg/dL 04/14/2025 8:37 PM CDT [facility] CREATININE, BLOOD 1.78(H) 0.70 - 1.30 mg/dL 04/14/2025 8:37 PM CDT [facility] BUN/CREATININE RATIO 10(L) 12 - 20 ratio 04/14/2025 8:37 PM CDT [facility] CALCIUM 9.5 8.7 - 10.5 mg/dL 04/14/2025 8:37 PM CDT [facility] GFR, ESTIMATED 42(L) >=60 04/14/2025 8:37 PM CDT [facility] Comment: Creatinine Clearance is the preferred criteria for selecting drug dose adjustments in renally impaired patients. The GFR is provided as additional pertinent clinical information. GFR is reported in mL/min/1.73 sq m. Calculation based on the 2020 Chronic Kidney Disease Epidemiology Collaboration (CKD-EPI) equation refit without adjustment for race. GFR, EST. 47(L) >=60 025 8:37 PM CDT [facility] Comment: Creatinine Clearance is the preferred criteria for selecting drug dose adjustments in renally impaired patients. The GFR is provided as additional pertinent clinical information. GFR is reported in mL/min/1.73 sq m. Calculation based on the 2009 Chronic Kidney Disease Epidemiology Collaboration (CKD-EPI). GFR, EST. NONAFRICAN 39(L) >=60 04/14/2025 8:37 PM CDT [facility] Comment: Creatinine Clearance is the preferred criteria for selecting drug dose adjustments in renally impaired patients. The GFR is provided as additional pertinent clinical information. GFR is reported in mL/min/1.73 sq m. Calculation based on the 2009 Chronic Kidney Disease Epidemiology Collaboration (CKD-EPI). Blood Venipuncture / Unknown 04/14/2025 8:20 PM CDT 04/14/2025 8:20 PM CDT us Jose Luis Mera PAC CHEMISTRY ORDERABLES Final Result [facility] [address] [place] [address] * CHLAMYDIA & GC DNA PROBE ADULT (04/14/2025 8:10 PM CDT) Only the most recent of2 resultswithin the time period is included. [facility] CHLAMYDIA DNA NEGATIVE NEGATIVE 04/15/2025 10:29 PM CDT [facility] Comment: Presumed negative for C. trachomatis. A negative result does not preclude C. trachomatis infection because results are dependent on adequate specimen collection, absence of inhibitors, and sufficient DNA to be detected. This test was performed using [employer] 5800 Real Time PCR. GC DNA NEGATIVE NEGATIVE 04/15/2025 10:29 PM CDT [facility] Comment: Presumed negative for N. gonorrhoeae. A negative result does not preclude N. gonorrhoeae infection because results are dependent on adequate specimen collection, absence of inhibitors, and sufficient DNA to be detected. This test was performed using [employer] 5800 Real Time PCR. Other URINE / Unknown Non-Phlebotomy Collection / Unknown 04/14/2025 8:10 PM CDT 04/14/2025 8:21 PM CDT us Jose Luis Mera [facility] MICROBIOLOGY - GENER AL ORDERABLES Final Result [facility] [address] [place] [address], * (ABNORMAL) URINALYSIS REFLEX IF INDICATED BY ABNORMAL RESULTS (03/30/2025 11:28 PM CDT) [facility] SPECIFIC GRAVITY 1.015 1.003 - 1.030 03/30/2025 11:50 PM CDT [facility] URINE PH 6.0 5.0 - 9.0 03/30/2025 11:50 PM CDT [facility] WBC ESTERASE 500 /uL(A) Negative 03/30/2025 11:50 PM CDT [facility] NITRITE Negative Negative 03/30/2025 11:50 PM CDT [facility] PROTEIN, RANDOM URINE 100 mg/dL(A) Negative 03/30/2025 11:50 PM CDT [facility] URINE GLUCOSE, QUAL Negative Negative 03/30/2025 11:50 PM CDT [facility] URINE KETONES Negative Negative 03/30/2025 11:50 PM CDT [facility] UROBILINOGEN Normal Normal mg/dL 03/30/2025 11:50 PM CDT [facility] URINE BLOOD 25 /uL(A) Negative rommel/ul 03/30/2025 11:50 PM CDT [facility] URINALYSIS COLOR Yellow 03/30/20 11:50 PM CDT [facility] URINALYSIS CLARITY Slightly Cloudy 03/30/2025 11:50 PM CDT [facility] WBC (Urine) 51-150(A) Negative, 0-5 /hpf 03/30/2025 11:50 PM CDT [facility] URINE RBC'S 3-5(A) Negative, 0-2 /hpf 03/30/2025 11:50 PM CDT [facility] EPITHELIAL CELLS Negative /lpf 03/30/20 11:50 PM CDT [facility] BACTERIA, URINE Few(A) Negative /hpf 03/30/2025 11:50 PM CDT [facility] Urine URINE SPECIMEN OBTAINED BY CLEAN CATCH PROCEDURE / Unknown Non-Phlebotomy Collection / Unknown 03/30/2025 11:28 PM CDT 03/30/2025 11:33 PM CDT us Anton Kent MD URINE ORDERABLES Final Res ult [facility] [address] [place] [address] * Culture, Urine (03/30/2025 11:28 PM CDT) CULTURE RESULTS Mixed Growth of One or More Distal Urethral Contaminants 04/01/2025 8:37 AM CDT [facility] Urine URINE SPECIMEN OBTAINED BY CLEAN CATCH PROCEDURE / Unknown Non-Phlebotomy Collection / Unknown 03/30/2025 11:28 PM CDT 03/30/2025 11:33 PM CDT Anton Kent MD MICROBIOLOGY - GENERAL ORD ERABLES Final Result Performing Organization Address City/[facility]/ZIP Co de Phone Number [facility] [address] [place] [address], * HEMOGLOBIN A1C W/ ESTIMATED GLUCOSE (12/17/2024 12:40 PM CDT) Pathologist [facility] HGB-A1C 4.9 4.0 - 6.0 % 12/17/2024 2:12 PM CDT [facility] Est Average Glucose 93.9 mg/dL 12/17/2024 2:12 PM CDT [facility] Blood Venipuncture / Unknown 12/17/2024 12:40 PM CDT 12/17/2024 1:50 PM CDT Narrative [facility] - 12/17/2024 2:12 PM CDT HEMOGLOBIN A1C: DIABETIC PATIENTS: WELL-CONTROLLED: 6.2 - 7.0 INTERMEDIATE WELL-CONTROLLED: 7.0 - 9.0 POORLY-CONTROLLED: >9.0 Specimens containing greater than 5% of Hemoglobin F may result in lower than expected % HbA1C results. Kane Rivas MD CHEMISTRY ORDERABLES Final Result Performing Organization Address City/[facility] Co de Phone Number [facility] [address] [place] [address] * (ABNORMAL) UR MICROALBUMIN/CREATININE RATIO RANDOM (12/17/2024 12:40 PM CDT) RAN UR MICROALBUMIN 20.88 mg/dL 12/17/2024 3:39 PM CDT [facility] Comment:No reference range h as been established. Consider Clinical Correlation. CREATININE URINE 70.9 mg/dL 12/18/19 3:39 PM CDT [facility] Comment:No reference range h as been established. Consider Clinical Correlation. ALB/CREAT RATIO 294(H) 0 - 30 mg/g CRE 12/17/2024 3:39 PM CDT [facility] Urine Non-Phlebotomy Collection / Unknown 12/17/2024 12:40 PM CDT 12/17/2024 1:50 PM CDT Kane Rivas MD URINE ORDERABLES Final Resu lt Performing Organization Address [facility] Co de Phone Number [facility] [address] [place] [address] * PSA SCREEN (10/21/2024 4:00 PM DATA ENTRY ASSISTANT) [facility] PSA SCREEN, TOTAL 1.67 <4.00 ng/mL 10/21/2024 6:07 PM DATA ENTRY ASSISTANT [facility] Blood No Phlebotomy Charged / Unknown 10/21/2024 4:00 PM DATA ENTRY ASSISTANT 10/21/2024 4:49 PM DATA ENTRY ASSISTANT Narrative [facility] - 10/21/2024 6:07 PM DATA ENTRY ASSISTANT The [employer] Total PSA assay is a Chemiluminescent Microparticle Immunoassay (CMIA) for the quantitative determination of total PSA (both free PSA and PSA complexed to [id number]) in human serum. Total PSA values obtained with different assay methods, including Infante PSA assays, cannot be used interchangeably. Bairon Solo MD CHEMISTRY ORDERABLES Fi nal Result Performing Organization Address [facility] Co de Phone Number [facility] [address] [place] [address] * Hepatitis Panel Acute (AHP) (05/31/2022 12:14 PM CDT) Pathologist [facility] HEPATITIS A IGM ANTIBODY NON DETECTED NON DETECTED [facility] [id number] 05/31/2022 8:47 PM CDT [facility] Comment: IGM Antibodies to HAV not detected. Does not exclude early acute or recovered HAV infection. HEP B CORE AB (IGM) NON DETECTED NON DETECTED [facility] [id number] 05/31/2022 8:47 PM CDT [facility] Comment:IGM anti-HBC not det ected. Does not exclude the possibility of exposure to or infection with HBV. HEPATITIS B SURFACE ANTIGEN NON DETECTED NON DETECTED [facility] [id number] B 05/31/2022 8:47 PM CDT [facility] Comment:A nonreactive test r esult does not exclude the possibility of exposure to or infection with Hepatitis B virus. A nonreactive test result in individuals with prior exposure to hepatitis B may be due to antigen levels below the detection limit of this assay or lack of antigen reactivity to the antibodies in this assay. hepatitis C antibody 0.05 <1 S/CO [facility] [id number] 05/31/2022 8:47 PM CDT [facility] Comment: Signal/Cutoff ratio < 0.79 is Nondetected Signal/Cutoff ratio 0.80-0.99 is Grayzone Signal/Cutoff ratio > 0.99 is Detected Supplemental assays are recommended if signal/cutoff ratio is >/=1.00. Signal/cutoff ratio result >/= 5.00 is 97% predictive of positivity for recombinant immunoblot assay (RIBA) and will be reported to the [place] Department of Public Health as required. Blood Venipuncture / Unknown 05/31/2022 12:14 PM CDT 05/31/2022 12:14 PM CDT us Kathleen Smallwood MD HEMATOLOGY ORDERABLES F inal Result [facility] [address] [place] [address], from Last 3 Months or Most Recently Relevant to Health Maintenance Insurance [facility]ICARE C [facility] Member Subscriber Plan / Payer (Ef fective 2024-Present) Name:Godwin Gregorio Jr. Relation to Subscriber:Self Name:Godwin Gregorio Jr. Payer ID:[id number] Group ID:[id number] Type:Not on file Address: [address] [place] [id number] MEDICARE C [facility] Advance Directives * Full Code (Latest Code Status on File) Date Activated Date Inactivated Comments 10/16/2023 10:48 PM 10/17/2023 3:23 AM CPR-Full Tr eatment: FULL ARREST: Attempt Resuscitation/CPR wit intubation and mechanical ventilation. PRE-ARREST: Use entire range of life support measures to stabilize the patient. * Full Code Date Activated Date Inactivated Comments 05/29/2022 10:24 AM 07/11/2022 7:44 PM CPR-Full T reatment: FULL ARREST: Attempt Resuscitation/CPR wit intubation and mechanical ventilation. PRE-ARREST: Use entire range of life support measures to stabilize the patient. Care Teams Spice Mixer Relationship Specialty Start Date End Date Kane Rivas MD [address] [facility] [address] [place] [address] PCP - General Internal Medicine 11/28/22 Samanta Hurst MD Internal Medicine 05/29/22
--- OUTSIDE RECORDS SUMMARY | 2025-04-18 18:10 | XMS_ITS | Encounter Summary ---
Author Organization [facility] Address [facility] [place] [address] Care Team Providers Care Detective Narcotics And Vice Name Role Phone Yovani Alonzo MD Primary Care Provider [phone] Samanta Hurst MD Primary Care Provider [phone] Kane Rivas MD Primary Care Provider [phone] Encounter Details Date Type Department Care Team (Latest Contact Info) Description 06/26/2018 Abstract [facility] Rolando Harden MD Social History Tobacco Use Types Packs/Day Years Used Date Smoking Tobacco: Never Assessed Sex and Gender Information Value Date Recorded Sex Assigned at Not on file Legal Sex Male 5:38 PM CDT Gender Identity Not on file Sexual Orientation Not on file documented as of this encounter Plan of Treatment Not on file documented as of this encounter Visit Diagnoses Not on filedocumented in this encounter Additional Health Concerns Infection Onset Date Last Indicated Resolved Time COVID-19 Rule Out 04/02/2021 04/02/2021 04/02/2021 5:45 AM CDT documented as of this encounter Care Teams Detective Narcotics And Vice Relationship Specialty Start Date End Date Yovani Alonzo MD PCP - General 03/13/17 08/30/19 Samanta Hurst MD PCP - General INTERNAL MEDICINE 08/31/19 09/14/20 Kane Rivas MD [address] [address] [place] [address] PCP - General INTERNAL MEDICINE 09/15/20 documented as of this encounter
--- OUTSIDE RECORDS SUMMARY | 2025-04-18 18:10 | XMS_ITS | Encounter Summary ---
Author Organization [facility] Facility Care Team Providers Care Metal Fence Erector Name Role Phone Yovani Alonzo MD Primary Care Provider [phone] Yamel Gao RN Unavailable [phone] Zoila Rivero LPN Unavailable [phone] No, Physician Primary Care Provider Yovani Juarez MD Primary Care Provider [phone] Yovani Alonzo MD Primary Care Provider [phone] Samanta Hurst MD Primary Care Provider [phone] No, Physician Primary Care Provider Kane Rivas MD Primary Care Provider [phone] Catarino Bryant MD Primary Care Provider [phone] Miscellaneous, Not In File Primary Care Provider Unavailable Jeane Mirza NP Primary Care Provider [phone] Kane Rivas MD Primary Care Provider [phone] Encounter Details Date Type Department Care Team (Latest Contact Info) Description 08/30/2018 Orders Only [facility] CLINCONV Provider, MD Thea [address] [place] [id number] Social History Tobacco Use Types Packs/Day Years Used Date Smoking Tobacco: Never Assessed Sex and Gender Information Value Date Recorded Sex Assigned at Not on file Legal Sex Male 10:51 PM CADDY Gender Identity Not on file Sexual Orientation Not on file documented as of this encounter Plan of Treatment Not on file documented as of this encounter Procedures Procedure Name Priority Date/Time Associated Diagnosis Comments AUDIOLOGY RECORD 08/30/2018 12:0 0 AM CADDY documented in this encounter Results * AUDIOLOGY RECORD (08/30/2018 12:00 AM CADDY) Narrative 08/30/2018 12:00 AM CADDY Ordered by an unspecified provider. us Historical Provider NURSING COMMUNICATION Fin al Result documented in this encounter Visit Diagnoses Not on filedocumented in this encounter Additional Health Concerns Infection Onset Date Last Indicated Resolved Time COVID: Suspected 07/27/2023 07/27/2023 07/27/2023 7:12 AM CADDY documented as of this encounter Care Teams Metal Fence Erector Relationship Specialty Start Date End Date Yovani Alonzo MD PCP - General 08/22/18 03/31/19 No, Physician PCP - General 04/01/19 04/16/19 Yovani Juarez MD PCP - General 04/17/19 04/17/19 Yovani Alonzo MD PCP - General 04/18/19 06/26/19 Samanta Hurst MD PCP - General 06/27/19 01/04/20 No, Physician PCP - General 01/05/20 03/31/20 Kane Rivas MD [address] [facility] [address] [place] [address] PCP - General 04/01/20 12/12/20 Catarino Bryant MD [address] [place] [address] PCP - General 12/13/20 08/28/21 Miscellaneous, Not In File PCP - General 08/29/21 Jeane Mirza, TELEGRAPHIC TYPEWRITER INSTALLER [address] [address] PCP - General 09/08/21 09/26/21 Kane Rivas MD [address] [facility] [address] [facility] [address] [place] [address] PCP - General 09/27/21 Yamel Gao, RN Embroidery Patternmaker 03/11/19 03/11/19 Zoila Rivero, LEAD QUALITY TECHNICIAN [address] [place] [address] [address] [place] [address] Embroidery Patternmaker 03/20/19 03/20/19 documented as of this encounter
--- OUTSIDE RECORDS SUMMARY | 2025-04-18 18:10 | XMS_ITS | Clinical Summary ---
Author Organization [facility] Address [facility] [place] [address] Care Team Providers Care Financial Officer Name Role Phone Kane Rivas MD Primary Care Provider [phone] Allergies Active Allergy Reactions Criticality Noted Date Comments Amoxicillin Itching 08/31/2019 Hydrocodone Unknown Medium 10/29/2019 Medications divalproex 500 MG ER 24 hr tablet TK 2 TS PO QHS 0 05/22/2018 Active glipiZIDE 5 MG tablet TK 1 T PO D 0 06/08/2018 Active metFORMIN 1000 MG tablet Take 1,000 mg by mouth 2 (two) times daily with meals. 0 05/01/2018 Active albuterol sulfate HFA 108 (90 Base) MCG/ACT inhaler Inhale 2 puffs into the lungs every 6 (six) hours as needed. 09/13/2019 Active oxyCODONE immediate release 10 MG immediate release tablet Take 10 mg by mouth every 8 (eight) hours as needed for Severe pain (Scale 8 - 10). 08/16/2019 Active meloxicam 7.5 MG tablet Take 7.5 mg by mouth daily. 10/21/2020 Active lisinopril 30 MG tablet Take 30 mg by mouth daily. 09/14/2020 Active cyclobenzaprine (FLEXERIL) 10 MG tablet Take 1 tablet (10 mg total) by mouth 3 (three) times daily as needed. 15 tablet 12/12/2023 Active Active Problems Problem Noted Date Diagnosed Date Effusion of left knee 11/12/2020 Primary osteoarthritis of left knee 11/12/2020 Diabetes mellitus ([facility]/HCC HHS/HCC) 11/17/2016 Essential hypertension 11/17/2016 KATHI (obstructive sleep apnea) 11/17/2016 Bipolar disorder (manic depression) ([facility] /[facility]) 11/17/2016 Family History Medical History Relation Comments No Known Problems Father Depression Mother Diabetes Mother Heart Attack Mother Hypertension Mother Relation Status Comments Father Mother Social History Tobacco Use Types Packs/Day Years Used Date Smoking Tobacco: Every Day Cigarettes Smokeless Tobacco: Never Tobacco Cessation:Counseling Given: No Alcohol Use Standard Drinks/Week Comments Not Currently 0 (1 standard drink = 0.6 oz pur e alcohol) AUDIT-C Answer Date Recorded Frequency of Alcohol Consumption Never 07/16/2018 Average Number of Drinks Not on file 018 Frequency of Binge Drinking Not on file 06/22 PHQ-2 Answer Date Recorded PHQ-2 Score - If the patient scores above 3, please move on to questions 3-9 2 09/14/2020 Sex and Gender Information Value Date Recorded Sex Assigned at Not on file Legal Sex Male 5:38 PM CDT Gender Identity Not on file Sexual Orientation Not on file Last Filed Vital Signs Vital Sign Reading Time Taken Comments Blood Pressure 154/85 12/12/2023 1:54 PM CDT Pulse 93 12/12/2023 1:54 PM CDT Temperature 35.9 C (96.7 F) 12/12/2023 1:54 PM CDT Respiratory Rate 18 12/12/2023 1:54 PM CDT Oxygen Saturation 98% 12/12/2023 1:54 PM CDT Inhaled Oxygen Concentration - - Weight 98.9 kg (218 lb) 12/12/2023 1:54 PM CDT Height 172.7 cm (5' 8) 12/12/2023 1:54 PM CDT Body Mass Index 33.15 12/12/2023 1:54 PM CDT Plan of Treatment Health Maintenance Due Date Last Done Comments Colorectal Cancer Screening Colonoscopy (10 Years) 1962 Kidney Health Evaluation 1962 Annual Physical 1965 Diabetes: Retinopathy Eye Exam 02/22/1980 Hepatitis C 02/22/1980 Zoster Vaccines (1 of 2) 02/22/2012 Pneumococcal Vaccine: 50+ Years (2 of 2 - PCV) 05/09/2020 05/09/2019 Lipid Panel 10/31/2020 11/01/2019 Hemoglobin A1C 04/15/2024 10/16/2023, 04/22, 10/17/2022, Additional history exists COVID-19 Vaccine ( - season) 2024 DTaP, Tdap and Td Vaccines (2 - Td or Tdap) 01/31/2032 01/30/2022 RSV Immunization or 60+ Years (1 - 1-dose 75+ series) 2037 Meningococcal B Vaccine Aged Out No l onger eligible based on patient's age to complete this topic Meningococcal Vaccine Aged Out No essence emy eligible based on patient's age to complete this topic RSV Immunizations Under 20 Months Aged Out No longer eligible based on patient's age to complete this topic Procedures Procedure Name Priority Date/Time Associated Diagnosis Comments HEMOGLOBIN, GLYCOSYLATED Routine 04/01/2020 from Last 3 Months or Most Recently Relevant to Health Maintenance Results * HEMOGLOBIN, GLYCOSYLATED (04/01/2020) HGB A1C 4.9 % 04/01/2020 us Doc [facility] LABORATORY Final Result from Last 3 Months or Most Recently Relevant to Health Maintenance Insurance [place] [address] [place] [address] MEDICAL REIMBURSEMENTS OF PEDRO Care Teams Financial Officer Relationship Specialty Start Date End Date Kane Rivas MD [address] [facility] [address] [place] [id number] PCP - General INTERNAL MEDICINE 09/15/20
--- OUTSIDE RECORDS SUMMARY | 2025-04-18 18:10 | XMS_ITS | Clinical Summary ---
Author [place] [facility] [place] 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 Name Role Phone Kane Rivas MD Primary Care Provider Allergies Active Allergy Reactions Criticality Noted Date Comments Amoxicillin Itching,Rash,Unknown Medium 08/08/2019 Medications glipiZIDE (GLUCOTROL) 5 mg tablet Take 1 tablet (5 mg total) by mouth daily 30 tablet 0 Active Additional Information Patient not taking.Reported on 02/27/2025 divalproex ER (DEPAKOTE ER) 500 mg 24 hr tablet Take 1 tablet (500 mg total) by mouth daily 30 tablet 2 Active QUEtiapine (SEROquel) 400 mg tablet Take 1 tablet (400 mg total) by mouth nightly 30 tablet 2 Active albuterol HFA (PROVENTIL HFA,VENTOLIN HFA,PROAIR HFA) 90 mcg/actuation inhaler Inhale 2 puffs every 4 (four) hours as needed for wheezing 1 each 3 Active sildenafiL (VIAGRA) 50 mg tablet TAKE ONE Tablet BY MOUTH ONCE DAILY NEEDED MUST LAST 30 DAYS [address] (PROTONIX) 40 mg EC tablet 2 Active OneTouch Delica Plus Lancet 33 gauge misc 4 Active OneTouch Ultra Test strip TEST 3 TIMES A DAY DIRECTED 4 Active atorvastatin (LIPITOR) 20 mg tablet Take 1 tablet (20 mg total) by mouth nightly Active amLODIPine (NORVASC) 5 mg tablet Take 1 tablet (5 mg total) by mouth 2 (two) times a day Active cyclobenzaprin e (FLEXERIL) 10 mg tablet Take 1 tablet (10 mg total) by mouth 2 (two) times a day as needed for muscle spasms 20 tablet 4 Active lidocaine (XYLOCAINE) 5 % ointment Apply topically as needed for pain Massage into area of pain 3-4 times daily as directed. Collaborating physician Yovani Barron MD 120 g 1 5 Active lidocaine (LIDODERM) 5 % Place 1 patch on the skin daily for 12 hours for 14 days Remove & discard patch within 12 hours or as directed by . 14 patch 5 Active QUEtiapine (SEROquel) 100 mg tablet TAKE 1 TABLET BY MOUTH EVERY DAY AT BEDTIME. TAKE ALONG WITH 400 MG FOR 500 MG TOTAL 5 Active hydrALAZINE (APRESOLINE) 10 mg tablet Take 1 tablet twice a day by oral route. 5 Active lubiprostone (AMITIZA) 24 mcg capsule Take 1 capsule (24 mcg total) by mouth 2 (two) times a day 5 Active Active Problems Problem Noted Date Diagnosed Date Closed head injury 08/27/2024 Cervical strain, acute, initial encounter 2024 Bilateral primary osteoarthritis of knee 024 Schizoaffective disorder, bipolar type 0 Psychosis NOS / Unspecified schziophrenia spectrum and other psychotic disorders (DSM IV-TR/DSM 5) 08/25/2019 Degenerative lumbar spinal stenosis 05/09/2019 Sacroiliitis 05/09/2019 Degenerative disc disease, cervical 05/09/2019 Degenerative cervical spinal stenosis 05/09/2019 Right leg pain 05/09/2019 Cough 04/19/2019 Low back pain 04/18/2019 Bilateral occipital neuralgia 04/18/2019 Left hip pain 04/18/2019 Cervicalgia 03/21/2019 URI with cough and congestion 03/21/2019 Tobacco dependence 03/21/2019 Fall against object 03/12/2019 Post-traumatic headache 03/12/2019 Nontraumatic complete tear of rotator cuff, righ t 02/04/2019 Overview (02/04/2019): Added automatically from request for surgery [id number] Arthritis of right acromioclavicular joint 02/04 Overview (02/04/2019): Added automatically from request for surgery [id number] Biceps tendinitis on right 02/04/2019 Overview (02/04/2019): Added automatically from request for surgery [id number] Impingement syndrome of right shoulder 9 Overview (02/04/2019): Added automatically from request for surgery [id number] Bilateral hand pain 01/09/2019 Chronic pain syndrome 12/27/2018 Bilateral sensorineural hearing loss 08/30/2018 Primary osteoarthritis of left hip 05/08/2018 Degenerative disc disease, lumbar 08/10/2017 Bipolar disorder (manic depression) 11/17/2016 Assessment & Plan (12/27/2018 4:20 PM CDT): Seen Psychiatry on medications. KATHI (obstructive sleep apnea) 11/17/2016 Anxiety 11/09/2016 Chronic right shoulder pain 10/13/2016 Assessment & Plan (12/27/2018 4:24 PM CDT): Has done therapy. Has had x-rays. Sent to Orthopedic surgery to evaluate for surgery. Type 2 diabetes mellitus with hypoglycemia 10/13 Assessment & Plan (12/27/2018 4:20 PM CDT): A diabetic diet. Continue meds. A1c has been better. Tobacco abuse 10/13/2016 OA (osteoarthritis) 10/13/2016 Primary osteoarthritis of left knee 07/19/2016 Essential hypertension 05/19/2016 Assessment & Plan (12/27/2018 4:19 PM CDT): Continue meds. Blood pressure is better. Confusion Hypoglycemia associated with diabetes Resolved Problems Problem Noted Date Diagnosed Date Resolved Date Acute pain of left shoulder 03/21/2019 03/21/2019 Knee pain 03/18/2016 03/12/2019 Encounters Date Type Department Care Team Description 04/08/2025 Telephone [facility] Medical [facility] Orthopedics and Sports Medicine [address] [place] [address] [address] [place] [address] Teofilo Regalado MD Zilretta PA 04/06/2025 1:22 PM CDT - 04/06/2025 2:04 PM CDT Emergency [facility] Emergency Department [address] [place] [address] Other chronic pain (Primary Dx) Discharge Disposition: Discharge to home or self care 03/13/2025 Results Follow-Up [facility] Medical [facility] Orthopedics and Sports Medicine [address] [place] [address] [address] [place] [address] Chelsey Lugo PA MRI Shoulder Left WO Contrast 03/11/2025 3:39 PM CDT - 03/11/2025 11:59 PM CDT Hospital Encounter [facility] [address] [place] [address] Primary osteoarthritis of left shoulder; Traumatic tear of left rotator cuff, unspecified tear extent, initial encounter; Biceps tendonitis, left Discharge Disposition: Discharge to home or self care 02/27/2025 3:15 PM CDT Office Visit [facility] Orthopedics and Sports Medicine [address] [place] [address] [address] [place] [address] Chelsey Lugo PA Traumatic tear of left rotator cuff, unspecified tear extent, initial encounter (Primary Dx); Primary osteoarthritis of left shoulder; Biceps tendonitis, left 02/27/2025 8:00 AM CDT - 02/27/2025 11:59 PM CDT Hospital Encounter [facility] Orthopedics and Sports Medicine [address] [place] [address] [address] [place] [address] Discharge Disposition: Discharge to home or self care 02/27/2025 Orders Only [facility] Orthopedic and Sports Medicine [address] [place] [phone] Chelsey Lugo PA Primary osteoarthritis of left shoulder (Primary Dx); Traumatic tear of left rotator cuff, unspecified tear extent, initial encounter; Biceps tendonitis, left 01/24/2025 11:45 AM CDT Office Visit [facility] Orthopedics and Sports Medicine 4 [facility] [address] [place] [phone] Elaine Orozco NP Primary osteoarthritis of left knee (Primary Dx) from Last 3 Months Immunizations Immunization Administration Dates Next Due Influenza, Quadrivalent, Split, Intramuscular Pneumococcal Polysaccharide PPV23 05/09/2019 Tdap 01/30/2022 Surgical History Surgery Date Site/Laterality Comments KNEE SURGERY 08/21/2013 - 08/20/2014 Left FOOT SURGERY 08/21/2015 - 08/20/2016 Bilateral ROTATOR CUFF REPAIR 02/14/2019 Left Medical History Medical History Date Comments Diabetes mellitus (HCC) Hypertension Schizoaffective psychosis (HCC) Paranoid KATHI (obstructive sleep apnea) 11/17/2016 Cancer (HCC) Family History Medical History Relation Name Comments Diabetes Father Diabetes Paternal Grandmother Relation Name Status Comments Father Paternal Grandmother Social History Tobacco Use Types Packs/Day Years Used Date Smoking Tobacco: Every Day Cigarettes 1 57 Started: 06/19/1988; Last attempted to quit: 06/19/2018 Smokeless Tobacco: Former Tobacco Cessation:Ready to Q uit: Not Asked; Counseling Given: Not Answered Comments:varies Alcohol Use Standard Drinks/Week Comments Not [...] than three times a week 08/26/2019 Attends Anabaptism Services More than 4 times per year 08/26/2019 Active Member of Clubs or Organizations Yes 08/26/2019 Attends Club or Organization Meetings More than 4 times per year 08/26/2019 Marital Status 08/26/2019 AUDIT-C Answer Date Recorded Q1: How often do you have a drink containing alcohol? Never 10/24/2024 Q2: How many drinks containi ng alcohol do you have on a typical day when you are drinking? Patient does not drink Q3: How often do you have si x or more drinks on one occasion? Never 10/24/2024 Overall Financial Resource Strain (CARDIA) Answe r [...] making you feel afraid or unsafe? Denies 04/06/2025 Education Answer Date Recorded What is the highest level of school you have completed or the highest degree you have received? 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 Gender Identity Not on file Sexual Orientation Not on file Obstetrics History Last Filed Vital Signs Vital Sign Reading Time Taken Comments Blood Pressure 159/81 04/06/2025 1:20 PM CDT Pulse 89 04/06/2025 1:20 PM CDT Temperature 36.4 C (97.5 F) 04/06/2025 1:20 PM CDT Respiratory Rate 17 04/06/2025 1:20 PM CDT Oxygen Saturation 94% 04/06/2025 1:20 PM CDT Inhaled Oxygen Concentration - - Weight 99.8 kg (220 lb) 04/06/2025 1:20 PM CDT Height 170.2 cm (5' 7) 04/06/2025 1:20 PM CDT Body Mass Index 34.46 04/06/2025 1:20 PM CDT Plan of Treatment Health Maintenance Due Date Last Done Comments Colon Cancer Screening-Colonoscopy 1960 Dilated Eye Exam 1962 Foot Exam 1962 Hepatitis B Screening 02/22/1980 Regular Well Visit/Exam 18-64 02/22/1980 Lung Cancer Screening 02/22/2012 Zoster Vaccine (1 of 2) 02/22/2012 Prostate Cancer Screening-PSA 11/17/2019 11/16/2017, 11/06/2014 Pneumococcal vaccine <65 (2 of 2 - PCV) 05/09/2020 05/09/2019 Depression Screening 10/23/2020 10/24/2019, 08/25/2019, 08/25/2019 Albumin Creatinine Ratio, Urine 05/19/2024 3 Hemoglobin A1C 08/06/2024 02/05/2024, 04/22, 04/01/2020, Additional history exists Influenza Vaccine (#1) 2025 05/09/2019 eGFR 12/15/2025 12/15/2024, 06/22, 07/08/2024, Additional history exists Lipid Panel 12/17/2025 12/17/2024, 04/22, 10/17/2022, Additional history exists DTaP/Tdap/Td Vaccine (5 - Td or Tdap) 12/29/2033 12/30/2023, 01/30/2022, 05/28/2015, Additional history exists Hepatitis C Screening Completed 09/04/2012 Colon Cancer Screening-FIT Discontinued 08/24/2018, Goals Goal Patient Goal Type Associated Problems Recent Progress Patient-Stated? Author [facility] Aiyana Roland, TASNEEM Note: Patient will establish a comfort-function goal and identify the pain level that will allow the patient to perform desired activities and achieve an acceptable quality of life. 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 Commercial Sales Specialist Device Identifier Shelf Expiration Date Model / Serial / Lot [employer] Ar-2325bcc Swivelock 3.5mm 15.8mm Shoulder Reserve Suture Biocomposite - [id number] Implanted:Qty: 1 on 02/14/2019 by Jose G Nuñez MD at [facility] Right: Shoulder [employer] 03/20/2020 AR-2325BC C / / [id number] [employer] 2504-1 Regenerate Tendon Reserve Suture - [id number] Implanted:Qty: 1 on 02/14/2019 by Jose G Nuñez MD at [facility] Right: Shoulder [employer] 09/20/2019 2504-1 / / [id number] [employer] 2503-A Arthroscopic Delivery System Reserve Suture Sterile Disposable - [id number] Implanted:Qty: 1 on 02/14/2019 by Jose G Nuñez MD at [facility] Right: Shoulder [employer] 07/25/2019 2503-A / / [id number] [employer] 2169-3 Reconstitute Scaffold Large Mesh Surgical Collagen Sterile Latex - [id number] Implanted:Qty: 1 on 02/14/2019 by Jose G Nuñez MD at [facility] Right: Shoulder [employer] 08/20/2021 2169-3 / / [id number] [employer] Ar-2324bcc Swivelock C 4.75mm 19.1mm Closed Eyelet Vent Reserve Suture - [id number] Implanted:Qty: 1 on 02/14/2019 by Jose G Nuñez MD at [facility] Right: Shoulder [employer] 12/18/2020 AR-2324BC C / / [id number] Procedures Procedure Name Priority Date/Time Associated Diagnosis Comments MRI SHOULDER LEFT WO CONTRAST Schedule Routine, Read Routine (OP Routine) 03/11/2025 4:17 PM CDT Primary osteoarthritis of left shoulder Traumatic tear of left rotator cuff, unspecified tear extent, initial encounter Biceps tendonitis, left MO ARTHROCENTESIS ASPIR&/INJ MAJOR JT/BURSA W/O US Routine 02/27/2025 3:15 PM CDT Primary osteoarthritis of left shoulder Traumatic tear of left rotator cuff, unspecified tear extent, initial encounter Biceps tendonitis, left XR SHOULDER LEFT 1 VIEW Routine 02/27/2025 3:10 PM CDT Primary osteoarthritis of left shoulder MO ARTHROCENTESIS ASPIR&/INJ MAJOR JT/BURSA W/O US Routine 01/24/2025 11:45 AM CDT Primary osteoarthritis of left knee EGFR STAT 12/15/2024 2:57 PM CDT HEMOGLOBIN A1C Routine 02/05/2024 1:42 PM CDT LIPID PANEL Routine 05/19/2023 2:44 PM CDT ALBUMIN CREATININE RATIO, URINE Routine 05/19/2023 2:44 PM CDT OCCULT BLOOD, FECAL (FIT) Routine 08/24/2018 3:46 PM 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 PSA SCREEN Routine 11/16/2017 10:00 AM CDT HEPATITIS PANEL, ACUTE Routine 09/04/2012 10:30 AM 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 from Last 3 Months or Most Recently Relevant to Health Maintenance Results * MRI Shoulder Left WO Contrast (03/11/2025 4:17 PM CDT) Anatomical Region Laterality Modality Upper Extremities Left Magnetic Reson ance 03/11/2025 5:11 PM CDT Narrative 03/11/2025 5:16 PM CDT EXAM DESCRIPTION: MRI SHOULDER LEFT WO CONTRAST REASON FOR STUDY: Left shoulder pain, rotator cuff tear Shoulder pain for the last month after doing lots of heavy lifting/pushing/pulling, pt states that it feels similar to when he had rotator cuff tear TECHNIQUE: Multiplanar, multisequence MRI of the left shoulder was performed without contrast. COMPARISON: None FINDINGS: Rotator Cuff: Postsurgical changes from prior rotator cuff repair. There is no evidence of full-thickness re-tear ring of the supraspinatus or infraspinatus.. The teres minor is intact. Intra-articular biceps demonstrates moderate tendinosis. Moderate subscapularis tendinosis with interstitial tearing. No muscle atrophy or edema. Biceps Tendon: The long head of the biceps tendon is located within the bicipital groove, without tear. Labrum: No tear is identified. Acromion and AC Joint: The coracoacromial and coracoclavicular ligaments are intact. Postsurgical change of distal clavicle resection and subacromial decompression. Type 2 acromion. Glenohumeral Articulation: No subluxation. No chondromalacia. Bones: No fracture. Joint and bursae: No joint effusion or bursal fluid. No loose bodies. Soft Tissues: The scapular notch, and quadrilateral space are unremarkable. There is no axillary lymphadenopathy. IMPRESSION: 1. Postsurgical changes from prior rotator cuff repair. No evidence of full-thickness re-tear ring of the supraspinatus or infraspinatus. 2. Intra-articular biceps moderate tendinosis. 3. Subscapularis moderate tendinosis with interstitial tearing. 4. Postsurgical change of distal clavicle resection and subacromial decompression. THIS IS AN ELECTRONICALLY VERIFIED FINAL REPORT 03/11/2025 5:16 PM - Electronically signed by Kelvin Spence M.D. JA: JESSENIA Report ID: [id number] Reading Location: [place] [address] Procedure Note Kelvin Spence MD - 03/11/2025 EXAM DESCRIPTION: MRI SHOULDER LEFT WO CONTRAST REASON FOR STUDY: Left shoulder pain, rotator cuff tear Shoulder pain for the last month after doing lots of heavy lifting/pushing/pulling, pt states that it feels similar to when he had rotator cuff tear TECHNIQUE: Multiplanar, multisequence MRI of the left shoulder wasperformed without contrast. COMPARISON: None FINDINGS: Rotator Cuff: Postsurgical changes from prior rotator cuff repair. Thereis no evidence of full-thickness re-tear ring of the supraspinatus or infraspinatus.. The teres minor is intact. Intra-articular biceps demonstrates moderate tendinosis. Moderate subscapularis tendinosis with interstitial tearing. No muscle atrophy or edema. Biceps Tendon: The long head of the biceps tendon is located within the bicipital groove, without tear. Labrum: No tear is identified. Acromion and AC Joint: The coracoacromial and coracoclavicular ligamentsare intact. Postsurgical change of distal clavicle resection and subacromial decompression. Type 2 acromion. Glenohumeral Articulation: No subluxation. No chondromalacia. Bones: No fracture. Joint and bursae: No joint effusion or bursal fluid. No loose bodies. Soft Tissues: The scapular notch, and quadrilateral space areunremarkable. There is no axillary lymphadenopathy. IMPRESSION: 1. Postsurgical changes from prior rotator cuff repair. No evidence of full-thickness re-tear ring of the supraspinatus or infraspinatus. 2. Intra-articular biceps moderate tendinosis. 3. Subscapularis moderate tendinosis with interstitial tearing. 4. Postsurgical change of distal clavicle resection and subacromial decompression. THIS IS AN ELECTRONICALLY VERIFIED FINAL REPORT 03/11/2025 5:16 PM - Electronically signed by Kelvin Spence M.D. JA: JESSENIA Report ID: [id number] Reading Location: [place] [address] us Chelsey GAO IMG MRI PROCEDURES Fin al Result * MO ARTHROCENTESIS ASPIR&/INJ MAJOR JT/BURSA W/O US (02/27/2025 3:15 PM CDT) Narrative Chelsey Lugo PA - 02/27/2025 3:15 PM CDT Chelsey Lugo PA 02/27/2025 3:50 PM Large Joint (Hip, Knee, Shoulder) Injection: L glenohumeral Performed by: Chelsey Lugo PA Authorized by: Chelsey Lugo PA Large Joint Injection/Aspiration: Consent Given by: Patient Site marked: the procedure site was marked Timeout: prior to procedure the correct patient, procedure, and site was verified Verbal consent obtained: Yes Supporting Documentation: Indications: Pain Procedure Details: Location: Shoulder Site: L glenohumeral Prep: patient was prepped and draped in usual sterile fashion Prep: patient was prepped using a clean technique Needle Size: 22 G Approach: Posterior Ultrasound guided: No Fluroscopic guidance: No Medications: 80 mg methylPREDNISolone acetate 80 mg/mL; 3 mL lidocaine 20 mg/mL (2 %) Patient tolerance: Patient tolerated the procedure well with no immediate complications us Chelsey GAO IN CLINIC/BEDSIDE [facility] Final Result * XR Shoulder Left 1 View (02/27/2025 3:10 PM CDT) Anatomical Region Laterality Modality Upper Extremities, Shoulder Left Digi shaan Radiography Narrative 02/27/2025 3:24 PM CDT Axillary view of the left shoulder reviewed and interpreted today. No evidence of fracture or dislocation. Moderate osteoarthritic changes noted at glenohumeral joint as evidenced by joint space narrowing, subchondral sclerosis, and osteophyte formation. Chelsey GAO IMG XR PROCEDURES Esther l Result * MO ARTHROCENTESIS ASPIR&/INJ MAJOR JT/BURSA W/O US (01/24/2025 11:45 AM CDT) Narrative Elaine Orozco NP - 01/24/2025 11:45 AM CDT Elaine Orozco NP 01/24/2025 12:30 PM Large Joint (Hip, Knee, Shoulder) Injection: L knee Performed by: Elaine Orozco NP Authorized by: Elaine Orozco NP Large Joint Injection/Aspiration: Consent Given by: Patient Site marked: the procedure site was marked Timeout: prior to procedure the correct patient, procedure, and site was verified Verbal consent obtained: Yes Supporting Documentation: Indications: Pain Procedure Details: Location: Knee Site: L knee Needle Size: 22 G Approach: Anterolateral Ultrasound guided: No Fluroscopic guidance: No Medications: 2 mL lidocaine 20 mg/mL (2 %); 32 mg triamcinolone acetonide extended release 32 mg Patient tolerance: Patient tolerated the procedure well with no immediate complications Elaine Orozco SHERIFF SERGEANT IN CLINIC/BEDSIDE ORDER NOÉ Final Result * (ABNORMAL) eGFR (12/15/2024 2:57 PM CDT) eGFR 42(L) >=60 mL/min/1. 73 m2 Comment: Interpretive Data Reference Interval Normal >/= 90 mL/min/1.73m2 Mildly decreased* 60 - 89 mL/min/1.73m2 Mildly to moderately decreased 45 - 59 mL/min/1.73m2 Moderately to severely decreased 30 - 44 mL/min/1.73m2 Severely decreased 15 - 29 mL/min/1.73m2 Kidney Failure < 15 mL/min/1.73m2 *Relative to young adult level Estimated glomerular filtration rate is determined by the 2020 CKD-EPI equation recommended by the National Kidney Foundation (A Unifying Approach to GFR Estimation: Recommendations of the NKF-ASK Task Force on Reassessing the Inclusion of Race in Diagnosing Kidney Disease, JASN 202). The CKD-EPI equation should not be used for patients with unstable renal function and has not been validated in children and those over 70. Current interpretive data was last reviewed 2021. Blood 12/15/2024 2:57 PM CDT 12/15/2024 3:03 PM CDT Mary GAO LAB BLOOD ORDERABLES Final Resu lt Performing Organization Address City/[facility]/ZIP Co de Phone Number TONY DURAN ([place]) 1 [facility] [place] [address] * (ABNORMAL) Hemoglobin A1c (02/05/2024 1:42 PM CDT) Hgb A1C 6.4(H) 4.0 - 5.6 % Estimated Average Glucose 137 mg/dL TONY DURAN ([place]) Comment: The ADA recommends reporting an estimated Average Glucose (eAG) with all Hemoglobin A1c results using the equation derived from a study of 507 normal and diabetic adults. Minority populations were underrepresented and children were not included. (Diabetes Care 31:0129-9686, 2008). The eAG is not equivalent to a fasting glucose. Blood 02/05/2024 1:42 PM CDT 02/05/2024 1:49 PM CDT Kane Rivas MD LAB BLOOD ORDERABLES Final Result TONY DURAN ([place]) 1 [facility] [place] [address] * (ABNORMAL) Albumin Creatinine Ratio, Urine (05/19/2023 2:44 PM CDT) Albumin Ur 596.3 mg/L [facility] ([place]) Comment: Interpretive Data No reference range established. Current interpretive data was last revised 2019. Testing performed by: [facility], [address] [place] [address]., [id number] Creatinine Ur 92.2 mg/dL [facility] ([place] Comment: Interpretive Data No reference range established. Current interpretive data was last revised 2019. Testing performed by: [address] [address] Albumin Creatinine Ratio, Ur 647(H) 1 - 29 mg/g [facility] ([place]) Comment:Testing performed by : [facility], [address] [place] [address]., [id number] Urine 05/19/2023 2:44 PM CDT 05/20/2023 11:10 AM CDT Kane Rivas MD LAB URINE ORDERABLES Final Result [facility] ([place]) 1 [facility] Department [place] [address] * (ABNORMAL) Lipid panel (05/19/2023 2:44 PM CDT) Cholesterol 153 30 - 199 mg/dL [facility] ([place]) Comment: Interpretive Data Ages < or = 19 years Acceptable: <170 mg/dL Borderline high: 170-199 mg/dL High: >or= 200 mg/dL Ages > or = 20 years Desirable: <200 mg/dL Borderline high: 200-239 mg/dL High: >or= 240 mg/dL Literature References: 1. Expert Panel on Integrated Guidelines for Cardiovascular Health and Risk Reduction in Children and Adolescents. Pediatrics 2011;128:S213 2. NCEP Expert Panel. Circulation 2004;110:227 Current Interpretive Data was last revised on 2018. Triglycerides 154(H) <=149 mg/dL [facility] ([place]) Comment: Interpretive Data Ages < or = 9 years Acceptable: <75 mg/dL Borderline high: 75-99 mg/dL High: >or= 100 mg/dL Ages 10 to 20 years Acceptable: <90 mg/dL Borderline high: 90-129 mg/dL High: >or= 130 mg/dL Ages > or = 20 years Desirable: <150 mg/dL Borderline high: 150-199 mg/dL High: 200-499 mg/dL Very high: >or= 499 mg/dL Literature References: 1. Expert Panel on Integrated Guidelines for Cardiovascular Health and Risk Reduction in Children and Adolescents. Pediatrics 2011;128:S213 2. NCEP Expert Panel. Circulation 2004;110:227 Current Interpretive Data was last revised on 2018. HDL 35(L) >=40 mg/dL TONY DURAN ([place]) Comment: Interpretive Data Ages < or = 19 years Acceptable: >45 mg/dL Borderline low: 40-45 mg/dL Low: <40 mg/dL Ages > or = 20 years Desirable: >or= 60 mg/dL Low: <40 mg/dL Literature References: 1. Expert Panel on Integrated Guidelines for Cardiovascular Health and Risk Reduction in Children and Adolescents. Pediatrics 2011;128:S213 2. NCEP Expert Panel. Circulation 2004;110:227 Current Interpretive Data was last revised on 2018. LDL, calculated 87 <=129 mg/dL TONY DURAN ([place]) Comment: Interpretive Data Ages < or = 19 years Acceptable: <110 mg/dL Borderline high: 110-129 mg/dL High: >or= 130 mg/dL Ages > or = 20 years Optimal: <100 mg/dL Near optimal: 100-129 mg/dL Borderline high: 130-159 mg/dL High: >160 mg/dL Literature References: 1. Expert Panel on Integrated Guidelines for Cardiovascular Health and Risk Reduction in Children and Adolescents. Pediatrics 2011;128:S213 2. NCEP Expert Panel. Circulation 2004;110:227 Current Interpretive Data was last revised on 2018. Non-HDL Cholesterol 118 mg/dL TONY DURAN ([place]AD[place]INE) Comment: Interpretive Data Ages < or = 19 years Acceptable: <120 mg/dL Borderline high: 120-144 mg/dL High: >145 mg/dL Ages > or = 20 years When triglycerides are >200 mg/dL, Non-HDL cholesterol is a secondary target of therapy with treatment goals that are 30 mg/dL greater than the LDL cholesterol target. Literature References: 1. Expert Panel on Integrated Guidelines for Cardiovascular Health and Risk Reduction in Children and Adolescents. Pediatrics 2011;128:S213 2. NCEP Expert Panel. Circulation 2004;110:227 Current Interpretive Data was last revised on 2018. Chol/HDL ratio 4 KAREENNE Rocael RENEE ([place]) Blood 05/19/2023 2:44 PM CDT 05/19/2023 3:13 PM CDT us Kane Rivas MD LAB BLOOD ORDERABLES Final Result Performing Organization Address [facility] Co de Phone Number TONY RENEE ([place]) 1 [facility]ly [facility] Department [place] [address] * Occult blood, fecal non neoplasm screening (08/24/2018 3:46 PM 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) Pathologist [facility] [place] Stool Occult Blood NEGATIVE NEGATIVE 08/30/2018 3:51 PM 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 [facility] HISTORICAL RESULTS 08/24/2018 3:46 PM 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 08/30/2018 3:46 PM 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 Yovani Alonzo MD LAB BODY FLUIDS AND STOOLS OR DERABLES Final Result Performing Organization Address [facility] de Phone Number [facility] HISTORICAL RESULTS * PSA screen (11/16/2017 10:00 AM CDT) Pathologist [facility] [place] PSA Screen 1.4 0.0 - 3.9 ng/mL Comment: Method: ECLIA Values obtained by different assay methods cannot be used interchangeably. Use sequential testing to confirm baseline if assay method changed during patient monitoring. 11/16/2017 10:0 0 AM CDT 11/16/2017 10:19 AM CDT N[facility]ative [facility] - 11/16/2017 10:59 AM CDT 12 HOURS FASTING Yovani Alonzo MD LAB BLOOD ORDERABLES Final Re sult Performing Organization Address [facility] Co de Phone Number [facility] HISTORICAL RESULTS * (ABNORMAL) Hepatitis panel, acute (09/04/2012 10:30 AM 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) HepBsAg NONREACT NONREACTIVE Comment: Siemens CentaurXP using NELLA (chemiluminescent immunoassay) technology. NONREACTIVE: IgM antibodies to Hepatitis B Surface antigen not detected. REACTIVE: IgM antibodies to Hepatitis B Surface antigen detected. Reactive results will be confirmed by neutralization testing. HBsAb (immune status) REACTIVE(H) NONREACTIVE Comment: Siemens CentaurXP using NELLA (chemiluminescent immunoassay) technology. NONREACTIVE: IgM antibodies to Hepatitis B Surface antibody not detected. REACTIVE: IgM antibodies to Hepatitis B Surface antibody detected. Hep B core IgM NONREACT NONREACTIVE 3 12:09 PM [employer] [facility] HISTORICAL RESULTS Comment: Siemens CentaurXP using NELLA (chemiluminescent immunoassay) technology. NONREACTIVE: IgM antibodies to Hepatitis B Core antigen not detected. EQUIVOCAL: IgM antibodies to Hepatitis B Core antigen may or may not be present. Obtain a new specimen and retest. REACTIVE: IgM antibodies to Hepatitis B Core antigen detected. Hep A IgM NONREACT NONREACTIVE 09/04/2012 12:09 PM [employer] [facility] HISTORICAL RESULTS Comment: Siemens CentaurXP using NELLA (chemiluminescent immunoassay) technology. NONREACTIVE: IgM antibodies to Hepatitis A not detected. This does not exclude possibility of exposure to Hepatitis A or early acute infection. EQUIVOCAL:IgM antibodies to Hepatitis A may or may not be present. Suggest recollection and retest. REACTIVE: Antibodies to Hepatitis A detected. Hep C Ab NONREACT NONREACTIVE 09/04/2012 12:09 PM [employer] [facility] HISTORICAL RESULTS Comment: Siemens CentaurXP using NELLA (chemiluminescent immunoassay) technology. NONREACTIVE: Antibodies to Hepatitis C not detected. This does not exclude early acute Hepatitis C infection, possibility of exposure to Hepatitis C, antibodies below detection limit, or to lack of antibody reactivity to the antigen used in this assay. EQUIVOCAL: Antibodies to Hepatitis C may or may not be present. Sample to be confirmed by real-time PCR method. REACTIVE: Antibodies to Hepatitis C detected. 09/04/2012 10:3 0 AM 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 09/04/2012 10:38 AM [facility] us Des Lopez DO LAB MICROBIOLOGY - GENERA L ORDERABLES Final Result [facility] HISTORICAL RESULTS from Last 3 Months or Most Recently Relevant to Health Maintenance Insurance IDPA [facility] MEDICARE [id number] [facility] MEDICARE ADVANTAGE [facility] MEDICARE Address: [address] [address] [place] [address] IDPA [facility] MDCR HMO REF [place] [id number] [facility] MEDICARE ADVANTAGE [id number] WORKERS COMPENSATION GENERIC [facility] [id number] WORKERS COMPENSATION GENERIC Advance Directives For more information, please contact: [phone] * Full Code (Latest Code Status on File) Date Activated Date Inactivated Comments 10/25/2019 10:31 AM 10/26/2019 8:27 PM * Full Code Date Activated Date Inactivated Comments 10/24/2019 5:01 PM 10/25/2019 10:31 AM * Full Code Date Activated Date Inactivated Comments 08/25/2019 10:53 AM 08/27/2019 3:52 PM Care Teams Lithographic Proofer Apprentice Relationship Specialty Start Date End Date Kane Rivas MD [address] [facility] [address] [place] [address] [facility] - General 09/27/21
--- OUTSIDE RECORDS SUMMARY | 2025-04-18 18:10 | XMS_ITS | Encounter Summary ---
Author Organization [facility] Address [address] [place] [address] Phone Care Team Providers Care Stiff Straw Hat Washer Name Role Phone Samanta Hurst MD Primary Care Provider [phone] Samanta Hurst MD Unavailable [phone] Kane Rivas MD Primary Care Provider Encounter Details Date Type Department Care Team (Late st Contact Info) Description 08/05/2022 Telephone [facility] [address] [place] [address] Jeannie Quinones, DIMITRIOS MD Social History Tobacco Use Types Packs/Day Years Used Date Smoking Tobacco: Never Assessed Cigarettes Smokeless Tobacco: Never Alcohol Use Standard Drinks/Week Comments No 0 (1 standard drink = 0.6 oz pur e alcohol) Sex and Gender Information Value Date Recorded Sex Assigned at Male 12/14/2024 10:43 PM CDT Legal Sex Male 8:53 PM CDT Gender Identity Male 12/14/2024 10:43 PM CDT Sexual Orientation Not on file documented as of this encounter Miscellaneous Notes * Telephone Encounter - Jeannie Quinones MSW - 08/05/2022 1:57 PM LANDMAN Spoke with Jg by phone. He was recently in the hospital and is now in need of in-home help. [employer] [facility]. Spoke with Chaim and submitted an application for homemaker service. It may be up to 8 weeks before contact is made to schedule an evaluation for services. Jg has this information. MAN documented in this encounter Plan of Treatment Not on file documented as of this encounter Visit Diagnoses Not on filedocumented in this encounter Additional Health Concerns Infection Onset Date Last Indicated Resolved Time COVID - 19 11/28/2022 11/28/2022 12/08/2022 12:1 6 AM CDT COVID - 19 10/05/2023 10/05/2023 10/15/2023 12:1 6 AM LANDMAN documented as of this encounter Care Teams Stiff Straw Hat Washer Relationship Specialty Start Date End Date Samanta Hurst MD PCP - General Internal Medicine 05/29/22 11/27/22 Kane Rivas MD [address] [address] PCP - General Internal Medicine 11/28/22 Samanta Hurst MD Internal Medicine 05/29/22 documented as of this encounter
--- OUTSIDE RECORDS SUMMARY | 2025-04-18 18:10 | XMS_ITS | Encounter Summary ---
Author Organization [facility] Address [address] [facility] [place] [address] Phone Care Team Providers Care Sole Layer Hand Name Role Phone Samanta Hurst MD Unavailable [phone] Kane Rivas MD Primary Care Provider [phone] Encounter Details Date Type Department Care Team (Late st Contact Info) Description 10/21/2024 Lab Requisition [facility] Services [address] [place] [address] Bairon Solo MD [address] [place] [address] Encounter for screening for malignant neoplasm of prostate Social History Tobacco Use Types Packs/Day Years Used Date Smoking Tobacco: Former Cigarettes Smokeless Tobacco: Never Alcohol Use Standard Drinks/Week Comments No 0 (1 standard drink = 0.6 oz pur e alcohol) Has not drank for over a month [facility] Utilities Answer Date Recorded In the past 12 months has e electric, gas, oil, or water company [...] place to sleep or slept in a fpc (including now)? No 10/17/2023 Sex and Gender [...] Depression Depression On track(2024 12:21 PM CDT) No Yanci Seay, [facility] Note: Goal/Objective: Decrease depression. Anticipated Time Frame for Goal Completion: 6 months Goal Reviewed with: patient Readiness to change: Ready to change Department associated with goal: [facility] Steps to achieve goal: [...] and or cope with anxiety and depression. documented as of this encounter Procedures Procedure Name Priority Date/Time Associated Diagnosis Comments PSA SCREEN Routine 10/21/2024 4:00 PM CONTACT LENS LATHE OPERATOR Encounter for screening for malignant neoplasm of prostate documented in this encounter Results * PSA SCREEN (10/21/2024 4:00 PM CONTACT LENS LATHE OPERATOR) PSA SCREEN, TOTAL 1.67 <4.00 ng/mL 10/21/2024 6:07 PM CONTACT LENS LATHE OPERATOR [facility] Blood No Phlebotomy Charged / Unknown 10/21/2024 4:00 PM CONTACT LENS LATHE OPERATOR 10/21/2024 4:49 PM CONTACT LENS LATHE OPERATOR Narrative [facility] - 10/21/2024 6:07 PM CONTACT LENS LATHE OPERATOR [employer] Total PSA assay is a Chemiluminescent Microparticle Immunoassay (CMIA) for the quantitative determination of total PSA (both free PSA and PSA complexed to [id number]) in human serum. Total PSA values obtained with different assay methods, including Infante PSA assays, cannot be used interchangeably. us Bairon Solo MD CHEMISTRY ORDERABLES Fi nal Result [facility] [address] [place] [address] documented in this encounter Visit Diagnoses Diagnosis Encounter for screening for malignant neoplasm of prostate Special screening for malignant neoplasm of prostate documented in this encounter Care Teams Sole Layer Hand Relationship Specialty Start Date End Date Kane Rivas MD [address] [facility] [address] [place] [address] PCP - General Internal Medicine 11/28/22 Samanta Hurst MD Internal Medicine 05/29/22 documented as of this encounter
--- OUTSIDE RECORDS SUMMARY | 2025-04-18 19:09 | XMS_ITS | Clinical Summary ---
Author Organization [facility] Address [address] [place] [address] Care Team Providers Care Biology Laboratory Assistant Name Role Phone Unavailable Primary Care Provider Unavailabl e Allergies No known active allergies Medications albuterol (ACCUNEB) (2.5 MG/3ML) 0.083% nebulizer solution Take 3 mL (2.5 mg total) by nebulization Every 6 hours as needed. for wheezing or shortness of breath. 0 2 Active amLODIPine (NORVASC) 5 MG tablet 1 tablet (5 mg total) by PO/Per Tube route in the morning. 0 2 Active atorvastatin (LIPITOR) 10 MG tablet 1 tablet (10 mg total) by PO/Per Tube route nightly. 0 2 Active baclofen (LIORESAL) 5 MG tablet tablet 1 tablet (5 mg total) by PO/Per Tube route every 8 (eight) hours as needed (muscle spasms). 0 2 Active baclofen (LIORESAL) 5 MG tablet tablet 1 tablet (5 mg total) by PO/Per Tube route 3 (three) times a day. 0 2 Active dextrose 50 % IV solutionIndicat ions:Hypoglycem ia Infuse 25 mL (12.5 g total) into a venous catheter as needed for low blood sugar Indications: Disorder with Low Blood Sugar. 0 2 Active divalproex sprinkle (DEPAKOTE SPRINKLE) 125 MG capsule 1 capsule (125 mg total) by PO/Per Tube route in the morning and 1 capsule (125 mg total) at noon and 1 capsule (125 mg total) in the evening and 1 capsule (125 mg total) before bedtime. 0 2 Active famotidine (PEPCID) 20 MG tablet 1 tablet (20 mg total) by PO/Per Tube route in the morning. 0 2 Active Heparin Sodium, Porcine, (heparin, porcine,) 5000 UNIT/ML injectionIndica tions:Deep Vein Thrombosis Prophylaxis Inject 1 mL (5,000 Units total) under the skin every 12 (twelve) hours Indications: Treatment to Prevent Deep Vein Thrombosis. 0 2 Active insulin lispro 100 UNIT/ML injectionIndica tions:Hyperglyc emia Inject 0-12 Units under the skin 4 (four) times a day before meals and nightly Indications: High Blood Sugar. 10 mL 2 Active lidocaine (LIDOCARE) 4 % patch patch Place 2 patches on the skin in the morning. 0 2 Active QUEtiapine (SEROquel) 200 MG tabletIndicatio ns:Bipolar Mood Disorder 1 tablet (200 mg total) by PO/Per Tube route in the morning. Indications: Manic-Depression . 0 2 Active QUEtiapine (SEROquel) 300 MG tabletIndicatio ns:Agitation 2 tablets (600 mg total) by PO/Per Tube route nightly Indications: Agitation. 0 2 Active senna-docusate (SENOKOT-S) 8.6-50 MG 2 tablets by PO/Per Tube route in the morning and 2 tablets before bedtime. 0 2 Active dextrose (GLUTOSE) 40 % gelIndications: Hypoglycemia Take 15 g by mouth as needed for blood sugar < 70 mg/dl Indications: Disorder with Low Blood Sugar. 15 g 2 Active acetaminophen (TYLENOL) 325 MG tablet Take 2 tablets (650 mg total) by mouth every 6 (six) hours as needed for mild pain. 0 2 Active Active Problems Problem Noted Date Diagnosed Date Respiratory insufficiency 07/11/2022 Immunizations Immunization Administration Dates Next Due Pfizer SARS-CoV-2 Vaccination 07/12/2022 (Deferred: Not eligible - Medical contraindication - unknown),07/12/2022(Deferred: Not eligible - Medical contraindication) Social History Tobacco Use Types Packs/Day Years Used Date Smoking Tobacco: Every Day Smokeless Tobacco: Never Tobacco Cessation:Ready to Q uit: No Alcohol Use Standard Drinks/Week Comments Not Currently 0 (1 standard drink = 0.6 oz pur e alcohol) Sex and Gender Information Value Date Recorded Sex Assigned at Not on file Legal Sex Male 12:00 PM EST Gender Identity Not on file Sexual Orientation Not on file Last Filed Vital Signs Vital Sign Reading Time Taken Comments Blood Pressure 118/72 08/08/2022 11:10 AM STORE DETECTIVE Pulse 80 08/08/2022 11:10 AM STORE DETECTIVE Temperature 36.2 C (97.2 F) 08/08/2022 11:10 AM STORE DETECTIVE Respiratory Rate 18 08/08/2022 11:10 AM STORE DETECTIVE Oxygen Saturation 92% 08/07/2022 9:27 AM STORE DETECTIVE Inhaled Oxygen Concentration - - Weight 77.1 kg (170 lb) 08/07/2022 3:14 AM STORE DETECTIVE Height 188 cm (6' 2) 07/11/2022 11:59 AM STORE DETECTIVE Body Mass Index 21.83 07/11/2022 11:59 AM STORE DETECTIVE Plan of Treatment Health Maintenance Due Date Last Done Comments CT Colonography 1962 Colonoscopy 1962 Colorectal Cancer Screening 1962 FIT-DNA (Cologuard) 1962 FIT 1962 FOBT 1962 Sigmoidoscopy 1962 Annual Visit Topic 1963 MMR Vaccines (1 of 1 - Stand yesenia series) 1963 Hepatitis C Screening 02/22/1980 Pneumococcal Vaccine: Pediat rics (0 to 5 years) and At-Risk Patients (6 to 64 Years) (1 of 4 - PCV) 1981 PSA Test 2017 DTaP/Tdap/Td Vaccines (2 - T d or Tdap) 01/31/2032 01/30/2022 HIB Vaccines Aged Out No longer eligi ble based on patient's age to complete this topic HPV Vaccines Aged Out No longer eligi ble based on patient's age to complete this topic Hepatitis A Vaccines Aged Out No long er eligible based on patient's age to complete this topic Hepatitis B Vaccines Aged Out No long er eligible based on patient's age to complete this topic IPV Vaccines Aged Out No longer eligi ble based on patient's age to complete this topic Meningococcal Vaccine Aged Out No essence emy eligible based on patient's age to complete this topic Advance Directives * Full Resuscitation (Latest Code Status on File) Date Activated Date Inactivated Comments 07/11/2022 8:12 PM 08/08/2022 6:54 PM FULL
--- OUTSIDE RECORDS SUMMARY | 2025-04-18 19:09 | XMS_ITS | Encounter Summary ---
Author Organization [facility] Healthcare Address [address] [place] [address] Care Team Providers Care Rail Car Driver Name Role Phone Kane Rivas MD Primary Care Provider [phone] Encounter Details Date Type Department Care Team (Late st Contact Info) Description 09/12/2023 Community Orders [facility] EpicCare Link Kane Rivas MD [address] [facility] [address] [place] [address] Social History Tobacco Use Types [...] than three times a week 08/26/2019 Attends [employer] More than 4 times per year [...] on file Legal Sex Male 10:51 PM PANEL SEWER Gender Identity Not on file Sexual Orientation [...] on filedocumented in this encounter Care Teams Rail Car Driver Relationship Specialty Start Date End Date Kane Rivas MD [address] [facility] [address] [place] [address] PCP - General 09/27/21 documented as of this encounter
--- OUTSIDE RECORDS SUMMARY | 2025-04-18 19:10 | XMS_ITS | Encounter Summary ---
Author Organization [facility] Healthcare Address [address] [place] [address] Care Team Providers Care Process Assistant Name Role Phone Yovani Alonzo MD Primary Care Provider [phone] Samanta Hurst MD Primary Care Provider [phone] No, Physician Primary Care Provider Kane Rivas MD Primary Care Provider Catarino Bryant MD Primary Care Provider [phone] Miscellaneous, Not In File Primary Care Provider Unavailable Jeane Mirza NP Primary Care Provider Kane Rivas MD Primary Care Provider Encounter Details Date Type Department Care Team (Late st Contact Info) Description 06/04/2019 Documentation [facility] Physical Therapy [address] [place] [id number] [address] [place] Social History Tobacco Use Types Packs/Day Years Used Date Smoking Tobacco: Every Day Cigarettes 1.5 30 Started: 06/19/1988; Last attempted to quit: 06/19/2018 Smokeless Tobacco: Former Alcohol Use Standard Drinks/Week Comments Not Currently 0 (1 standard drink = 0.6 oz pur e alcohol) Sex and Gender Information Value Date Recorded Sex Assigned at Not on file Legal Sex Male 10:51 PM PULLING UNIT FLOORHAND Gender Identity Not on file Sexual Orientation [...] COVID: Suspected 07/27/2023 07/27/2023 07/27/2023 7:12 AM PULLING UNIT FLOORHAND documented as of this encounter Care Teams Process Assistant Relationship Specialty Start Date End Date Yovani Alonzo MD PCP - General 04/18/19 06/26/19 Samanta Hurst MD PCP - General 06/27/19 01/04/20 No, Physician PCP - General 01/05/20 03/31/20 Kane Rivas MD [address] [facility] [address] [facility] [address] [place] [address] PCP - General 04/01/20 12/12/20 Catarino Bryant MD [address] [place] [address] PCP - General 12/13/20 08/28/21 Miscellaneous, Not In File PCP - General 08/29/21 Jeane Mirza SEED SERVICE ADVISOR [address] [address] PCP - General 09/08/21 09/26/21 Kane Rivas MD [address] [facility] [address] [place], [place] [id number] PCP - General 09/27/21 documented as of this encounter
--- OUTSIDE RECORDS SUMMARY | 2025-04-18 19:10 | XMS_ITS | Clinical Summary ---
Author Organization [facility] Address [address] [place] [address] Care Team Providers Care Machine Maintenance Supervisor Name Role Phone Unavailable Primary Care Provider Unavailabl e Source Comments [facility],non-owned Affiliates and Associated Physician Practices is amultiple site organization consisting of ambulatory clinics and hospital sitesin [place], [place], [place] and [place]. This disclosure is being madepursuant to the Care Everywhere program and may not contain all information available regarding this patient. Last updated 18.[facility] Allergies Active Allergy Reactions Criticality Noted Date [...] on file Legal Sex Male 5:48 PM BRAZER RESISTANCE Gender Identity Not on file Sexual Orientation [...] PANEL (CALCIUM TOTAL) Routine 08/04/2022 3:59 AM BRAZER RESISTANCE LIPID PROFILE Routine 11/01/2019 5:56 AM CDT from Last 3 Months or Most Recently Relevant to Health Maintenance Results * (ABNORMAL) BASIC METABOLIC PANEL (CALCIUM TOTAL) (08/04/2022 3:59 AM BRAZER RESISTANCE) Glucose 73 70 - 105 mg/dL 08/04/2022 5:49 AM [facility] Sodium 139 136 - 145 mmol/L 08/04/2022 5:49 AM [facility] Potassium 4.1 3.5 - 5.1 mmol/L 08/04/2022 5:49 AM [facility] Chloride 110(H) 98 - 107 mmol/L 08/04/2022 5:49 AM [facility] CO2 22(L) 23 - 31 mmol/L 08/04/2022 5:49 AM [facility] Calcium 8.7 8.4 - 10.4 mg/dL 08/04/2022 5:49 AM [facility] Anion Gap 7(L) 8 - 18 mmol/L 08/04/2022 5:49 AM [facility] BUN 22 8.4 - 25.7 mg/dL 08/04/2022 5:49 AM [facility] Creatinine 1.26(H) 0.72 - 1.25 mg/dL 08/04/2022 5:49 AM [facility] eGFR by CKD-EPI 65(L) >=90 mL/min/1.7 3 m2 08/04/2022 5:49 AM [facility] Blood BLOOD SPECIMEN / Unknown Venipuncture / Unknown 08/04/2022 3:59 AM BRAZER RESISTANCE 08/04/2022 5:07 AM [facility] us Provider Unknown LAB - CHEMISTRY ORDERABLES Esther l Result [facility] [address] [place], [place] [id number] * LIPID PROFILE (11/01/2019 5:56 AM CDT) Cholesterol 144 <200 mg/dL 11/01/2019 6:41 AM CDT [facility] Triglycerides 73 <150 mg/dL 11/01/2019 6:41 AM CDT [facility] HDL Cholesterol 44 >40 mg/dL 0 6:41 AM CDT [facility] Chol HDL Ratio 3.3 1.0 - 6.0 11/01/2019 6:41 AM T [facility] LDL Calculated 85 65 - 130 mg/dL 11/01/2019 6:41 AM CDT [facility] VLDL Calculated 15 <=30 mg/dL 0 6:41 AM CDT [facility] Blood BLOOD SPECIMEN / Unknown Lab Venipuncture / Unknown 11/01/2019 5:56 AM CDT 11/01/2019 6:15 AM CDT Narrative [facility] - 11/01/2019 6:41 AM CDT Lipid [...] ORDERABLES Fi nal Result Performing Organization Address City/State/[facility] Co de Phone Number [facility] [address] from Last 3 Months or Most Recently Relevant to Health Maintenance Insurance [place] [facility] MANAGED MEDICARE ADV MEDICAID - [facility] MANAGED MEDICARE ADV MANAGED MEDICARE ADV MEDICARE [place] - [place] [facility] MANAGED MEDICARE ADV MANAGED MEDICARE ADV MEDICARE MEDICAID - OUT OF STATE [facility] MANAGED MEDICARE ADV MANAGED MEDICARE ADV MEDICARE MEDICAID - OUT OF STATE [facility] MANAGED MEDICARE ADV MANAGED MEDICARE ADV MEDICARE MEDICAID - OUT OF STATE Member Subscriber Plan / Payer (Ef fective for All Dates) Name:Yue Gregorio Relation to Subscriber:Self Name:YUE GREGORIO Payer ID:Not on file Group ID:Not on file Type:Medicaid Address: [address] MANAGED MEDICARE ADV Member Subscriber Plan / Payer (Ef fective for All Dates) Name:Yue Gregorio Relation to Subscriber:Self Payer ID:[id number] (NAIC) Type:Medicare-Managed Care Address: [address] MANAGED MEDICARE ADV MEDICARE MEDICAID - OUT OF STATE Member Subscriber Plan / Payer (Ef fective for All Dates) Name:Yue Gregorio Relation to Subscriber:Self Name:YUE GREGORIO Payer ID:Not on file Group ID:Not on file Type:Medicaid Address: [address] MANAGED MEDICARE ADV Member Subscriber Plan / Payer (Ef fective for All Dates) Name:Yue Gregorio Relation to Subscriber:Self Payer ID:[id number] (NAIC) Type:Medicare-Managed Care Address: [address] MANAGED MEDICARE ADV MEDICARE MEDICAID - OUT OF STATE [facility] MANAGED MEDICARE ADV Member Subscriber Plan / Payer (Ef fective for All Dates) Name:Yue Gregorio Relation to Subscriber:Self Payer ID:[id number] (NAIC) Type:Medicare-Managed Care Address: [address] MANAGED MEDICARE ADV MEDICARE MEDICAID - OUT OF STATE Advance Directives * Full Code (Latest Code Status on File) Date Activated Date Inactivated Comments 10/29/2019 9:27 PM 11/11/2019 2:18 PM
--- OUTSIDE RECORDS SUMMARY | 2025-04-18 19:11 | XMS_ITS | Clinical Summary ---
Author Organization [facility] Address [facility] [place] [address] Care Team Providers Care It Support Specialist Name Role Phone Kane Rivas MD Primary Care Provider [phone] Allergies Active Allergy Reactions Criticality Noted Date [...] osteoarthritis of left knee 11/12/2020 Diabetes mellitus ([facility]/HCC HHS/HCC) 11/17/2016 Essential hypertension 11/17/2016 KATHI (obstructive sleep apnea) 11/17/2016 Bipolar disorder (manic depression) ([facility] /[facility]) 11/17/2016 Family History Medical History Relation Comments [...] Recently Relevant to Health Maintenance Insurance [place] [address] [address] [address] [employer] Care Teams It Support Specialist Relationship Specialty Start Date End Date Kane Rivas MD [address] [facility] [address] [place] [phone] PCP - General INTERNAL MEDICINE 09/15/20
--- OUTSIDE RECORDS SUMMARY | 2025-04-18 19:13 | XMS_ITS | Encounter Summary ---
Author Organization [facility] Address [address] 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 He was recently in the hospital and is now in need of in-home help. [employer] [facility] [employer]. Spoke with Chaim and submitted an application for homemaker service. It may be up to 8 weeks before contact is made to schedule an evaluation for services. Jg has this information. RAFT REFUELER documented in this encounter Plan of Treatment Not on file documented as of this encounter Visit Diagnoses Not on filedocumented in this encounter Additional Health Concerns Infection Onset Date Last Indicated Resolved Time COVID - 19 11/28/2022 11/28/2022 12/08/2022 12:1 6 AM CDT COVID - 19 10/05/2023 10/05/2023 10/15/2023 12:1 6 AM AIRCRAFT REFUELER documented as of this encounter Care Teams Pinked Edge Sewing Machine Operator Relationship Specialty Start Date End Date Samanta Hurst MD PCP - General Internal Medicine 05/29/22 11/27/22 Kane Rivas MD [address] [address] PCP - General Internal Medicine 11/28/22 Smaanta Hurst MD Internal Medicine 05/29/22 documented as of this encounter
--- OUTSIDE RECORDS SUMMARY | 2025-04-18 19:13 | XMS_ITS | Clinical Summary ---
Author Organization [facility] Address [address] [place] [address] Care Team Providers Care Director Of Therapy Services Name Role Phone Kane Rivas MD Primary [...] (02/04/2019): Added automatically from request for surgery [id number] Arthritis of right acromioclavicular joint 02/04 Overview (02/04/2019): Added automatically from request for surgery [id number] Biceps tendinitis on right 02/04/2019 Overview (02/04/2019): Added automatically from request for surgery [id number] Impingement syndrome of right shoulder 9 Overview (02/04/2019): Added automatically from request for surgery [id number] Bilateral hand pain 01/09/2019 Chronic pain syndrome [...] Type Department Care Team Description 04/08/[address] [facility] Medical [facility] [address] [place] [address] [address] [place] [address] Teofilo Regalado MD Zilretta PA 04/06/2025 1:22 PM CDT - 04/06/2025 2:04 PM CDT Emergency [facility] Emergency Department [address] [place] [address] Other chronic pain (Primary Dx) Discharge Disposition: Discharge to home or self care 03/13/2025 Results Follow-Up [facility] Medical [facility] [address] [place] [address] [address] [place] [address] Chelsey Lugo PA MRI Shoulder Left WO Contrast 03/11/2025 3:39 PM CDT - 03/11/2025 11:59 PM CDT Hospital Encounter [facility] [address] [place] [address] Primary osteoarthritis of left shoulder; Traumatic tear of left rotator cuff, unspecified tear extent, initial encounter; Biceps tendonitis, left Discharge Disposition: Discharge to home or self care 02/27/2025 3:15 PM CDT Office Visit [facility] [address] [place] [address] [address] [place] [address] Chelsey Lugo PA Traumatic tear of left rotator cuff, unspecified tear extent, initial encounter (Primary Dx); Primary osteoarthritis of left shoulder; Biceps tendonitis, left 02/27/2025 8:00 AM CDT - 02/27/2025 11:59 PM CDT Hospital Encounter [facility] [address] [place] [address] [address] [place] [address] Discharge Disposition: Discharge to home or self care 02/27/[address] [facility] [address] [place] [phone] Chelsey Lugo PA Primary osteoarthritis of left shoulder (Primary Dx); Traumatic tear of left rotator cuff, unspecified tear extent, initial encounter; Biceps tendonitis, left 01/24/2025 11:45 AM CDT Office Visit 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 Rice Field Worker Device Identifier Shelf Expiration Date Model / Serial / Lot [employer] Ar-2325bcc Swivelock 3.5mm 15.8mm Shoulder [place] Suture Biocomposite - [id number] Implanted:Qty: 1 on 02/14/2019 by Jose G Nuñez MD at [facility] Right: Shoulder [employer] 03/20/2020 AR-2325BC C / / [id number] Hansen [employer] Nephew 2504-1 Regenerate Tendon [place] Suture - [id number] Implanted:Qty: 1 on 02/14/2019 by Jose G Nuñez MD at [facility] Right: Shoulder [employer] 09/20/2019 2504-1 / / [id number] [employer] 2503-A Arthroscopic Delivery System [place] Suture Sterile Disposable - [id number] Implanted:Qty: 1 on 02/14/2019 by Jose G Nuñez MD at [facility] Right: Shoulder [employer] 07/25/2019 2503-A / / [id number] [employer] 2169-3 Reconstitute Scaffold Large Mesh Surgical Collagen Sterile Latex - [id number] Implanted:Qty: 1 on 02/14/2019 by Jose G Nuñez MD at [facility] Right: Shoulder [employer] 08/20/2021 2169-3 / / [id number] [employer] Ar-2324bcc Swivelock C 4.75mm 19.1mm Closed Eyelet Vent [place] Suture - [id number] Implanted:Qty: 1 on 02/14/2019 by Jose G Nuñez MD at [facility] Right: Shoulder [employer] 12/18/2020 AR-2324BC C / / [id number] Procedures Procedure Name Priority Date/Time Associated Diagnosis Comments MRI SHOULDER LEFT WO CONTRAST Schedule Routine, Read Routine (OP Routine) 03/11/2025 4:17 PM CDT Primary osteoarthritis of left shoulder Traumatic tear of left rotator cuff, unspecified tear extent, initial encounter Biceps tendonitis, left CO ARTHROCENTESIS ASPIR&/INJ MAJOR JT/BURSA W/O US Routine 02/27/2025 3:15 PM CDT Primary osteoarthritis of left shoulder Traumatic tear of left rotator cuff, unspecified tear extent, initial encounter Biceps tendonitis, left XR SHOULDER LEFT 1 VIEW Routine 02/27/2025 3:10 PM CDT Primary osteoarthritis of left shoulder CO ARTHROCENTESIS ASPIR&/INJ MAJOR JT/BURSA W/O US Routine 01/24/2025 11:45 AM CDT Primary osteoarthritis of left knee EGFR STAT 12/15/2024 2:57 PM CDT HEMOGLOBIN A1C Routine 02/05/2024 1:42 PM CDT LIPID PANEL Routine 05/19/2023 2:44 PM CDT ALBUMIN CREATININE RATIO, URINE Routine 05/19/2023 2:44 PM CDT OCCULT BLOOD, FECAL (FIT) Routine 08/24/2018 3:46 PM RESOURCE MANAGER PSA SCREEN Routine 11/16/2017 10:00 AM CDT HEPATITIS PANEL, ACUTE Routine 09/04/2012 10:30 AM RESOURCE MANAGER from Last 3 Months or Most Recently [...] Kelvin Spence M.D. JA: JESSENIA Report ID: [id number] Reading Location: [place] [address] Procedure Note Kelvin Spence MD - 03/11/2025 [...] Kelvin Spence M.D. JA: JESSENIA Report ID: [id number] Reading Location: [place] [address] us Chelsey GAO IMG MRI PROCEDURES Fin al Result * CO ARTHROCENTESIS ASPIR&/INJ MAJOR JT/BURSA W/O US (02/27/2025 [...] IMG XR PROCEDURES Esther l Result * CO ARTHROCENTESIS ASPIR&/INJ MAJOR JT/BURSA W/O US (01/24/2025 11:45 AM CDT) Narrative Elaine Orozco NP - 01/24/2025 11:45 AM CDT Elaine Orozco NP 01/24/2025 12:30 PM Large Joint (Hip, Knee, Shoulder) Injection: L knee Performed by: Elaine Oroczo NP Authorized by: Elaine Orozco NP Large [...] well with no immediate complications Elaine Orozco CORPORATE LAW SPECIALIST IN CLINIC/BEDSIDE ORDER NOÉ Final Result * [...] 2:57 PM CDT 12/15/2024 3:03 PM CDT Mayr GAO LAB BLOOD ORDERABLES Final Resu lt Performing Organization Address City/[facility]/ZIP Co de Phone Number TONY DURAN ([place]) [address] [facility] [place] [address] * (ABNORMAL) Hemoglobin A1c (02/05/2024 1:42 PM CDT) Hgb A1C 6.4(H) 4.0 - 5.6 % Estimated Average Glucose 137 mg/dL TONY DURAN ([place]) Comment: The ADA recommends reporting an estimated Average Glucose (eAG) with all Hemoglobin A1c results using the equation derived from a study of 507 normal and diabetic adults. Minority populations were underrepresented and children were not included. (Diabetes Care 31:7879-0242, 2008). The eAG is not equivalent to a fasting glucose. Blood 02/05/2024 1:42 PM CDT 02/05/2024 1:49 PM CDT Kane Rivas MD LAB BLOOD ORDERABLES Final Result TONY DURAN ([place]) [address] [facility] [place] [address] * (ABNORMAL) Albumin Creatinine Ratio, Urine (05/19/2023 2:44 PM CDT) Albumin Ur 596.3 mg/L [facility]ERN[facility] ([place]) Comment: Interpretive Data No reference range established. Current interpretive data was last revised 2019. Testing performed by: [facility], [address] [place] [address]., [address] Creatinine Ur 92.2 mg/dL [facility] ([place]) Comment: Interpretive Data No reference range established. Current interpretive data was last revised 2019. Testing performed by: [address] [address] Albumin Creatinine Ratio, Ur 647(H) 1 - 29 mg/g [facility] ([place]) Comment:Testing performed by : [facility], [address] [place] [address]., [address] Urine 05/19/2023 2:44 PM CDT 05/20/2023 11:10 AM CDT Kane Rivas MD LAB URINE ORDERABLES Final Result [facility] ([place]) [address] [facility] Department [place] [address] * (ABNORMAL) Lipid panel (05/19/2023 2:44 PM [...] BLOOD ORDERABLES Final Result Performing Organization Address [facility] Co de Phone Number TONY RENEE ([place]) [address] [facility] [place] [address] * Occult blood, fecal non neoplasm screening (08/24/2018 3:46 PM RESOURCE MANAGER) Pathologist [facility] Stool Occult Blood NEGATIVE NEGATIVE 08/30/2018 3:51 PM RESOURCE MANAGER [facility] HISTORICAL RESULTS 08/24/2018 3:46 PM RESOURCE MANAGER 08/30/2018 3:46 PM RESOURCE MANAGER Yovani Alonzo MD LAB BODY FLUIDS AND STOOLS OR DERABLES Final Result Performing Organization Address [facility] de Phone Number [facility] HISTORICAL RESULTS * PSA screen (11/16/2017 10:00 AM CDT) Pathologist [facility] PSA Screen 1.4 0.0 - 3.9 ng/mL Comment: Method: ECLIA Values obtained by different assay methods cannot be used interchangeably. Use sequential testing to confirm baseline if assay method changed during patient monitoring. 11/16/2017 10:0 0 AM CDT 11/16/2017 10:19 AM CDT Narrative [facility] - 11/16/2017 10:59 AM CDT 12 HOURS FASTING Yovani Alonzo MD LAB BLOOD ORDERABLES Final Re sult Performing Organization Address [facility] Co de Phone Number [facility] HISTORICAL RESULTS * (ABNORMAL) Hepatitis panel, acute (09/04/2012 10:30 AM RESOURCE MANAGER) HepBsAg NONREACT NONREACTIVE Comment: Siemens CentaurXP using [...] core IgM NONREACT NONREACTIVE 3 12:09 PM [employer] [facility] HISTORICAL RESULTS Comment: Siemens CentaurXP using NELLA (chemiluminescent immunoassay) technology. NONREACTIVE: IgM antibodies to Hepatitis B Core antigen not detected. EQUIVOCAL: IgM antibodies to Hepatitis B Core antigen may or may not be present. Obtain a new specimen and retest. REACTIVE: IgM antibodies to Hepatitis B Core antigen detected. Hep A IgM NONREACT NONREACTIVE 09/04/2012 12:09 PM [employer] [facility] HISTORICAL RESULTS Comment: Siemens CentaurXP using NELLA (chemiluminescent immunoassay) technology. NONREACTIVE: IgM antibodies to Hepatitis A not detected. This does not exclude possibility of exposure to Hepatitis A or early acute infection. EQUIVOCAL:IgM antibodies to Hepatitis A may or may not be present. Suggest recollection and retest. REACTIVE: Antibodies to Hepatitis A detected. Hep C Ab NONREACT NONREACTIVE 09/04/2012 12:09 PM [employer] [facility] HISTORICAL RESULTS Comment: Siemens CentaurXP using NELLA [...] Hepatitis C detected. 09/04/2012 10:3 0 AM RESOURCE MANAGER 09/04/2012 10:38 AM [facility] us Des Lopez DO LAB MICROBIOLOGY - GENERA L ORDERABLES Final Result [facility] HISTORICAL RESULTS from Last 3 Months or Most Recently Relevant to Health Maintenance Insurance IDPA [facility] MEDICARE [id number] [facility] MEDICARE ADVANTAGE IDPA [facility] MDCR HMO REF [place] [id number] [facility] MEDICARE ADVANTAGE [id number] [employer] GENERIC [facility] [id number] WORKERS COMPENSATION GENERIC Advance Directives For more information, please contact: [phone] * Full Code (Latest Code Status on File) Date Activated Date Inactivated Comments 10/25/2019 10:31 AM 10/26/2019 8:27 PM * Full Code Date Activated Date Inactivated Comments 10/24/2019 5:01 PM 10/25/2019 10:31 AM * Full Code Date Activated Date Inactivated Comments 08/25/2019 10:53 AM 08/27/2019 3:52 PM Care Teams Director Of Therapy Services Relationship Specialty Start Date End Date Kane Rivas MD [address] [facility] [address] [place] [address] [facility] - General 09/27/21
--- OUTSIDE RECORDS SUMMARY | 2025-04-18 19:13 | XMS_ITS | Encounter Summary ---
Author Organization [facility] Address [facility] [place] [address] Care Team Providers Care Bevel Polisher Name Role Phone Yovani Alonzo MD Primary Care Provider [phone] Samanta Hurst MD Primary Care Provider [phone] Kane Rivas MD Primary Care Provider [phone]- [phone] Encounter Details Date Type Department Care Team (Latest Contact Info) Description 06/26/2018 Abstract [facility] Rolando Harden MD Social [...] documented as of this encounter Care Teams Bevel Polisher Relationship Specialty Start Date End Date Yovani Alonzo MD PCP - General 03/13/17 08/30/19 Samanta Hurst MD PCP - General INTERNAL MEDICINE 08/31/19 09/14/20 Kane Rivas MD [address] [place] [address] [place] [address] PCP - General INTERNAL MEDICINE 09/15/20 documented as of this encounter
--- OUTSIDE RECORDS SUMMARY | 2025-04-18 19:13 | XMS_ITS | Encounter Summary ---
Author Organization [facility] Facility Care Team Providers Care Barrel Lathe Operator Name Role Phone Yovani Alonzo MD Primary Care Provider [phone] Yamel Goa RN Unavailable [phone] Zoila Rivero LPN Unavailable [phone] No, Physician Primary Care Provider Yovani Juarez MD Primary Care Provider [phone] Yovani Alonzo MD Primary Care Provider [phone] Samanta Hurst MD Primary Care Provider [phone] No, Physician Primary Care Provider Kane Rivas MD Primary Care Provider [phone] Catarino Bryant MD Primary Care Provider [phone] Miscellaneous, Not In File Primary Care Provider Unavailable Jeane Mirza NP Primary Care Provider [phone] Kane Rivas MD Primary Care Provider [phone] Encounter Details Date Type Department Care Team (Latest Contact Info) Description 08/30/2018 Orders Only [facility]INCON[facility] Provider, MD Thea [address] [place] [id number] Social History Tobacco Use Types Packs/Day Years Used Date Smoking Tobacco: Never Assessed Sex and Gender Information Value Date Recorded Sex Assigned at Not on file 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 us Historical Provider NURSING COMMUNICATION Fin al Result documented in this encounter Visit Diagnoses Not on filedocumented in this encounter Additional Health Concerns Infection Onset Date Last Indicated Resolved Time COVID: Suspected 07/27/2023 07/27/2023 07/27/2023 7:12 AM STOCKHOLDER documented as of this encounter Care Teams Barrel Lathe Operator Relationship Specialty Start Date End Date Yovani Alonzo MD PCP - General 08/22/18 03/31/19 No, Physician PCP - General 04/01/19 04/16/19 Yovani Juarez MD PCP - General 04/17/19 04/17/19 Yovani Alonzo MD PCP - General 04/18/19 06/26/19 Samanta Hurst MD PCP - General 06/27/19 01/04/20 No, Physician PCP - General 01/05/20 03/31/20 Kane Rivas MD [address] [facility] [address] [place] [address] PCP - General 04/01/20 12/12/20 Catarino Bryant MD [address] [place] [address] PCP - General 12/13/20 08/28/21 Miscellaneous, Not In File PCP - General 08/29/21 Jeane Mirza, CLAIMS COLLECTOR [address] [address] PCP - General 09/08/21 09/26/21 Kane Rivas MD [address] [facility] [address] [facility] [address] [place] [address] PCP - General 09/27/21 Yamel Gao, RN Vehicle Body Sander 03/11/19 03/11/19 Zoila Rivero, UPKEEP MECHANIC [address] [place] [address] [address] [place] [address] Vehicle Body Sander 03/20/19 03/20/19 documented as of this encounter
--- OUTSIDE RECORDS SUMMARY | 2025-04-18 19:14 | XMS_ITS | Clinical Summary ---
Author Organization [facility] Address [address] [place] [address] Phone Care Team Providers Care Wind Up Worker Name Role Phone Samanta Hurst MD Unavailable [phone] Kane Rivsa MD Primary Care Provider Allergies Active Allergy [...] CDT - 04/15/2025 4:56 PM CDT [facility] [address] [place] [address] Jose Luis Mera, AIMEE Left leg pain Discharge Disposition: Discharged to home or Selfcare 04/15/2025 12:30 PM CDT - 04/15/2025 2:13 PM CDT [facility] [address] [place] [address] Jose Luis Mera, AIMEE Discharge Disposition: Discharged to home or Selfcare 04/15/2025 Travel 04/15/2025 [facility] [address] [place] [address] Jose Luis Mera PAC Left leg pain (Primary Dx) 04/14/2025 7:15 PM CDT - 04/14/2025 9:46 PM CDT [facility] [address] [place] [address] Jose Luis Mera PAC Left leg pain Discharge Disposition: Discharged to home or Selfcare 04/14/2025 Travel 04/07/2025 Telephone [facility] Emergency [address] [place] [address] Isabel Gonsalves APRN, [employer]CEAN TRANSPORTATION INTERMEDIARY Follow up 04/03/2025 Telephone [facility] Emergency [address] [place] [address] Toshia Tovar, PREFORMING MACHINE OPERATOR Follow-up (Test results) 03/30/2025 10:19 PM CDT - 03/31/2025 12:09 AM CDT Emergency [facility] Emergency [address] [place] [address] Anton Kent MD Penile discharge Discharge Disposition: Discharged to home or Selfcare 03/30/2025 Travel 02/08/2025 10:30 PM CDT - 02/08/2025 11:40 PM CDT Emergency [facility] Emergency [address] [place] [address] Suhas Netwon MD Left shoulder pain Discharge Disposition: Discharged to home or Selfcare 02/08/2025 Travel 01/22/2025 Telephone [facility] [address] [place] [address] Des Vogt MD 01/18/2025 2:42 AM CDT - 01/18/2025 3:20 AM CDT Emergency [facility] Emergency [address] [place] [address] Anton Kent MD Chronic left shoulder pain [...] Has not drank for over a month [facility] Utilities Answer Date Recorded In the past [...] place to sleep or slept in a detention (including now)? No 10/17/2023 Sex and Gender [...] On track(2024 12:21 PM CDT) Yanci Garcia, [facility] Note: Goal/Objective: Decrease depression. Anticipated Time Frame for Goal Completion: 6 months Goal Reviewed with: patient Readiness to change: Ready to change Department associated with goal: [facility] Steps to achieve goal: [...] and depression. 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 Safety Director Device Identifier Shelf Expiration Date Model / Serial / Lot Kit Cath 19cm 14.5fr Std Strg 2 Branch Polyu Ptfe Hemosplit Airguard 2 Lumen Kink Resistance - [id number] Implanted:Qty: 1 on 06/23/2022 by Chris Schwab MD at [facility] IMPLANT Right: Chest [employer] 02/17/2023 [id number] / [id number] Procedures Procedure Name Priority Date/Time Associated Diagnosis [...] cervical PSA SCREEN Routine 10/21/2024 4:00 PM DOMESTIC VIOLENCE ADVOCATE Encounter for screening for malignant neoplasm of [...] Jcarlos Gudino M.D. KR: BRO Report ID: [id number] Reading Location: [id number] Procedure Note Jcarlos Gudino MD - 04/15/2025 [...] Jcarlos Gudino M.D. KR: BRO Report ID: [id number] Reading Location: [id number] IMPRESSION: No evidence of left lower extremity [...] bridging between the distal tibia and fibula. Lkxn-bb-vejdenqq diffuse osteoarthritis. SOFT TISSUES: Unremarkable. THIS IS AN ELECTRONICALLY VERIFIED FINAL REPORT 04/14/2025 9:14 PM - Electronically signed by Sandoval Eugene M.D. AR: COLETTE Report ID: [id number] Reading Location: [id number] Procedure Note Sandoval Eugene MD - 04/14/2025 [...] bridging between the distal tibia and fibula. Jlju-se-chaspmsy diffuse osteoarthritis. SOFT TISSUES: Unremarkable. THIS IS AN ELECTRONICALLY VERIFIED FINAL REPORT 04/14/2025 9:14 PM - Electronically signed by Sandoval Eugene M.D. AR: COLETTE Report ID: [id number] Reading Location: [id number] IMPRESSION: No acute osseous abnormality identified. Chronic findings as above. Jose Luis Mera PAC IMG DIAGNOSTIC ORDER NOÉ Final Result * (ABNORMAL) CBC with Auto Differential (04/14/2025 8:20 PM CDT) WBC 10.05 4.00 - 12.00 10(3)/mcL 04/14/2025 8:23 PM CDT [facility] RBC 4.41 4.40 - 5.80 10(6)/mcL 04/14/2025 8:23 PM CDT [facility] HEMOGLOBIN (HGB) 14.1 13.0 - 16.5 g/dL 04/14/2025 8:23 PM CDT [facility] HEMATOCRIT (HCT) 43.4 38.0 - 50.0 % 04/14/2025 8:23 PM CDT [facility] MCV 98.4(H) 82.0 - 96.0 fL 04/14/2025 8:23 PM CDT [facility] MCH 32.0 26.0 - 32.0 pg 04/14/2025 8:23 PM CDT [facility] MCHC 32.5 31.0 - 36.0 g/dL 04/14/2025 8:23 PM CDT [facility] PLATELET COUNT 147 140 - 440 10(3)/mcL 04/14/2025 8:23 PM CDT [facility] RDW 13.2 11.8 - 15.5 % 04/14/2025 8:23 PM CDT [facility] MPV 10.4 8.0 - 12.6 fL 04/14/2025 8:23 PM CDT [facility] NEUTROPHILS 61.6 40.0 - 68.0 % 04/14/2025 8:23 PM CDT [facility] LYMPHOCYTES 28.6 19.0 - 49.0 % 04/14/2025 8:23 PM CDT [facility] MONOCYTES 7.9 3.0 - 13.0 % 04/14/2025 8:23 PM CDT [facility] EOSINOPHILS 0.6 0.0 - 8.0 % 04/14/2025 8:23 PM CDT [facility] BASOPHILS 0.3 0.0 - 1.0 % 04/14/2025 8:23 PM CDT [facility] IMMATURE GRANULOCYTE 1.0(H) 0.0 - 0.4 % 04/14/2025 8:23 PM CDT [facility] Comment:Immature Granulocyte s includes Metamyelocytes, Myelocytes, and Promyelocytes. ABSOLUTE NEUTROPHILS 6.20(H) 1.40 - 5.30 10(3)/mcL 04/14/2025 8:23 PM CDT [facility] ABSOLUTE LYMPHOCYTES 2.87 0.90 - 3.30 10(3)/mcL 04/14/2025 8:23 PM CDT [facility] ABSOLUTE MONOCYTES 0.79 0.10 - 0.90 10(3)/mcL 04/14/2025 8:23 PM CDT [facility] ABSOLUTE EOSINOPHIL 0.06 0.00 - 0.50 10(3)/mcL 04/14/2025 8:23 PM CDT [facility] ABSOLUTE BASOPHILS 0.03 0.00 - 0.10 10(3)/mcL 04/14/2025 8:23 PM CDT [facility] ABSOLUTE IMMATURE GRANULOCYTE 0.10(H) 0.00 - 0.03 10 (3) mcL. 04/14/2025 8:23 PM CDT [facility] NRBC PER 100 WBC 0 04/14/20 8:23 PM CDT [facility] Blood Venipuncture / Unknown 04/14/2025 8:20 PM CDT 04/14/2025 8:20 PM CDT Jose Luis Mera PAC HEMATOLOGY ORDERABLE S Final Result Performing Organization Address [facility] Co de Phone Number [facility] [address] [place] [address] * (ABNORMAL) D-DIMER [id number] (04/14/2025 8:20 PM CDT) D DIMER 0.50(H) <0.50 mcg/mL FEU 04/14/2025 8:37 PM CDT [facility] Blood Venipuncture / Unknown 04/14/2025 8:20 PM CDT 04/14/2025 8:20 PM CDT Narrative [facility] - 04/14/2025 8:37 PM CDT The FDA has approved this method to exclude the diagnosis of DVT and/or PE at the cutoff value of <0.50 mcg/mL FEU. Jose Luis Mera PAC HEMATOLOGY ORDERABLE S Final Result Performing Organization Address [facility] de Phone Number [facility] [address] [place] [address] * (ABNORMAL) BMP w/ Ca (04/14/2025 8:20 PM CDT) Pathologist [facility] SODIUM 138 136 - 145 mmol/L 04/14/2025 8:37 PM CDT [facility] POTASSIUM 4.4 3.5 - 5.1 mmol/L 04/14/2025 8:37 PM CDT [facility] CHLORIDE 104 98 - 107 mmol/L 04/14/2025 8:37 PM CDT [facility] CO2, VENOUS 24 22 - 30 mmol/L 04/14/2025 8:37 PM CDT [facility] ANION GAP 14.4 <18.0 mmol/L 04/14/2025 8:37 PM CDT [facility] GLUCOSE 129(H) 70 - 99 mg/dL 04/14/2025 8:37 PM CDT [facility] BUN 17 8 - 26 mg/dL 04/14/2025 8:37 PM CDT [facility] CREATININE, BLOOD 1.78(H) 0.70 - 1.30 mg/dL 04/14/2025 8:37 PM CDT [facility] BUN/CREATININE RATIO 10(L) 12 - 20 ratio 04/14/2025 8:37 PM CDT [facility] CALCIUM 9.5 8.7 - 10.5 mg/dL 04/14/2025 8:37 PM CDT [facility] GFR, ESTIMATED 42(L) >=60 04/14/2025 8:37 PM CDT [facility] Comment: Creatinine Clearance is the preferred criteria for selecting drug dose adjustments in renally impaired patients. The GFR is provided as additional pertinent clinical information. GFR is reported in mL/min/1.73 sq m. Calculation based on the 2020 Chronic Kidney Disease Epidemiology Collaboration (CKD-EPI) equation refit without adjustment for race. GFR, EST. 47(L) >=60 025 8:37 PM CDT [facility] Comment: Creatinine Clearance is the preferred criteria for selecting drug dose adjustments in renally impaired patients. The GFR is provided as additional pertinent clinical information. GFR is reported in mL/min/1.73 sq m. Calculation based on the 2009 Chronic Kidney Disease Epidemiology Collaboration (CKD-EPI). GFR, EST. NONAFRICAN 39(L) >=60 04/14/2025 8:37 PM CDT [facility] Comment: Creatinine Clearance is [...] Luis Mera PAC CHEMISTRY ORDERABLES Final Result [facility] [address] [place] [address] * CHLAMYDIA & GC DNA PROBE ADULT (04/14/2025 8:10 PM CDT) Only the most recent of2 resultswithin the time period is included. [facility] CHLAMYDIA DNA NEGATIVE NEGATIVE 04/15/2025 10:29 PM CDT [facility] Comment: Presumed negative for C. trachomatis. A negative result does not preclude C. trachomatis infection because results are dependent on adequate specimen collection, absence of inhibitors, and sufficient DNA to be detected. This test was performed using SILVERIO 5800 Real Time PCR. GC DNA NEGATIVE NEGATIVE 04/15/2025 10:29 PM CDT [facility] Comment: Presumed negative for N. gonorrhoeae. A negative result does not preclude N. gonorrhoeae infection because results are dependent on adequate specimen collection, absence of inhibitors, and sufficient DNA to be detected. This test was performed using SILVERIO 5800 Real Time PCR. Other URINE / Unknown Non-Phlebotomy Collection / Unknown 04/14/2025 8:10 PM CDT 04/14/2025 8:21 PM CDT us Jose Luis Mera [facility] MICROBIOLOGY - GENER AL ORDERABLES Final Result [facility] [address] [place] [address], * (ABNORMAL) URINALYSIS REFLEX IF INDICATED BY ABNORMAL RESULTS (03/30/2025 11:28 PM CDT) [facility] SPECIFIC GRAVITY 1.015 1.003 - 1.030 03/30/2025 11:50 PM CDT [facility] URINE PH 6.0 5.0 - 9.0 03/30/2025 11:50 PM CDT [facility] WBC ESTERASE 500 /uL(A) Negative 03/30/2025 11:50 PM CDT [facility] NITRITE Negative Negative 03/30/2025 11:50 PM CDT [facility] PROTEIN, RANDOM URINE 100 mg/dL(A) Negative 03/30/2025 11:50 PM CDT [facility] URINE GLUCOSE, QUAL Negative Negative 03/30/2025 11:50 PM CDT [facility] URINE KETONES Negative Negative 03/30/2025 11:50 PM CDT [facility] UROBILINOGEN Normal Normal mg/dL 03/30/2025 11:50 PM CDT [facility] URINE BLOOD 25 /uL(A) Negative rommel/ul 03/30/2025 11:50 PM CDT [facility] URINALYSIS COLOR Yellow 03/30/20 11:50 PM CDT [facility] URINALYSIS CLARITY Slightly Cloudy 03/30/2025 11:50 PM CDT [facility] WBC (Urine) 51-150(A) Negative, 0-5 /hpf 03/30/2025 11:50 PM CDT [facility] URINE RBC'S 3-5(A) Negative, 0-2 /hpf 03/30/2025 11:50 PM CDT [facility] EPITHELIAL CELLS Negative /lpf 03/30/20 11:50 PM CDT [facility] BACTERIA, URINE Few(A) Negative /hpf 03/30/2025 11:50 PM CDT [facility] Urine URINE SPECIMEN OBTAINED BY CLEAN CATCH PROCEDURE / Unknown Non-Phlebotomy Collection / Unknown 03/30/2025 11:28 PM CDT 03/30/2025 11:33 PM CDT us Anton Kent MD URINE ORDERABLES Final Res ult [facility] [address] [place] [address] * Culture, Urine (03/30/2025 11:28 PM CDT) CULTURE RESULTS Mixed Growth of One or More Distal Urethral Contaminants 04/01/2025 8:37 AM CDT [facility] Urine URINE SPECIMEN OBTAINED BY CLEAN CATCH PROCEDURE / Unknown Non-Phlebotomy Collection / Unknown 03/30/2025 11:28 PM CDT 03/30/2025 11:33 PM CDT Anton Kent MD MICROBIOLOGY - GENERAL ORD ERABLES Final Result Performing Organization Address City/[facility]/ZIP Co de Phone Number [facility] [address] [place] [address], * HEMOGLOBIN A1C W/ ESTIMATED GLUCOSE (12/17/2024 12:40 PM CDT) Pathologist [facility] HGB-A1C 4.9 4.0 - 6.0 % 12/17/2024 2:12 PM CDT [facility] Est Average Glucose 93.9 mg/dL 12/17/2024 2:12 PM CDT [facility] Blood Venipuncture / Unknown 12/17/2024 12:40 PM CDT 12/17/2024 1:50 PM CDT Narrative [facility] - 12/17/2024 2:12 PM CDT HEMOGLOBIN A1C: DIABETIC PATIENTS: WELL-CONTROLLED: 6.2 - 7.0 INTERMEDIATE WELL-CONTROLLED: 7.0 - 9.0 POORLY-CONTROLLED: >9.0 Specimens containing greater than 5% of Hemoglobin F may result in lower than expected % HbA1C results. Kane Rivas MD CHEMISTRY ORDERABLES Final Result Performing Organization Address City/[facility] Co de Phone Number [facility] [address] [place] [address] * (ABNORMAL) UR MICROALBUMIN/CREATININE RATIO RANDOM (12/17/2024 12:40 PM CDT) RAN UR MICROALBUMIN 20.88 mg/dL 12/17/2024 3:39 PM CDT [facility] Comment:No reference range h as been established. Consider Clinical Correlation. CREATININE URINE 70.9 mg/dL 12/18/19 3:39 PM CDT [facility] Comment:No reference range h as been established. Consider Clinical Correlation. ALB/CREAT RATIO 294(H) 0 - 30 mg/g CRE 12/17/2024 3:39 PM CDT [facility] Urine Non-Phlebotomy Collection / Unknown 12/17/2024 12:40 PM CDT 12/17/2024 1:50 PM CDT Kane Rivas MD URINE ORDERABLES Final Resu lt Performing Organization Address [facility] Co de Phone Number [facility] [address] [place] [address] * PSA SCREEN (10/21/2024 4:00 PM DOMESTIC VIOLENCE ADVOCATE) [facility] PSA SCREEN, TOTAL 1.67 <4.00 ng/mL 10/21/2024 6:07 PM DOMESTIC VIOLENCE ADVOCATE [facility] Blood No Phlebotomy Charged / Unknown 10/21/2024 4:00 PM DOMESTIC VIOLENCE ADVOCATE 10/21/2024 4:49 PM DOMESTIC VIOLENCE ADVOCATE Narrative [facility] - 10/21/2024 6:07 PM DOMESTIC VIOLENCE ADVOCATE [employer] Total PSA assay is a Chemiluminescent Microparticle Immunoassay (CMIA) for the quantitative determination of total PSA (both free PSA and PSA complexed to [id number]) in human serum. Total PSA values obtained with different assay methods, including Infante PSA assays, cannot be used interchangeably. Bairon Solo MD CHEMISTRY ORDERABLES Fi nal Result Performing Organization Address [facility] Co de Phone Number [facility] [address] [place] [address] * Hepatitis Panel Acute (AHP) (05/31/2022 12:14 PM CDT) Pathologist [facility] HEPATITIS A IGM ANTIBODY NON DETECTED NON DETECTED [facility] ARCH [id number] B 05/31/2022 8:47 PM CDT [facility] Comment: IGM Antibodies to HAV not detected. Does not exclude early acute or recovered HAV infection. HEP B CORE AB (IGM) NON DETECTED NON DETECTED [facility] ARCH [id number] 05/31/2022 8:47 PM CDT [facility] Comment:IGM anti-HBC not det ected. Does not exclude the possibility of exposure to or infection with HBV. HEPATITIS B SURFACE ANTIGEN NON DETECTED NON DETECTED [facility] ARCH [id number] B 05/31/2022 8:47 PM CDT [facility] Comment:A nonreactive test r esult does not exclude the possibility of exposure to or infection with Hepatitis B virus. A nonreactive test result in individuals with prior exposure to hepatitis B may be due to antigen levels below the detection limit of this assay or lack of antigen reactivity to the antibodies in this assay. hepatitis C antibody 0.05 <1 S/CO [facility] ARCH [id number] B 05/31/2022 8:47 PM CDT [facility] Comment: Signal/Cutoff ratio < 0.79 is Nondetected Signal/Cutoff ratio 0.80-0.99 is Grayzone Signal/Cutoff ratio > 0.99 is Detected Supplemental assays are recommended if signal/cutoff ratio is >/=1.00. Signal/cutoff ratio result >/= 5.00 is 97% predictive of positivity for recombinant immunoblot assay (RIBA) and will be reported to the [place] Department of Public Health as required. Blood Venipuncture / Unknown 05/31/2022 12:14 PM CDT 05/31/2022 12:14 PM CDT us Kathleen Smallwood MD HEMATOLOGY ORDERABLES F inal Result [facility] [address] [place] [address], from Last 3 Months or Most Recently Relevant to Health Maintenance Insurance MEDICARE C [facility] Member Subscriber Plan / Payer (Ef fective 2024-Present) Name:Godwin Gregorio Jr. Relation to Subscriber:Self Name:Godwin Gregorio Jr. Payer ID:[id number] Group ID:NONE Type:Not on file Address: [address] [place] [id number] MEDICARE C [facility] Advance Directives * Full Code (Latest Code [...] measures to stabilize the patient. Care Teams Wind Up Worker Relationship Specialty Start Date End Date Kane Rivas MD [address] [facility] [address] [place] [address] PCP - General Internal Medicine 11/28/22 Samanta Hurst MD Internal Medicine 05/29/22
--- OUTSIDE RECORDS SUMMARY | 2025-04-18 19:14 | XMS_ITS | Encounter Summary ---
Author Organization [facility] Facility Care Team Providers Care Doors Prefitter Name Role Phone Yovani Alonzo MD Primary Care Provider [phone] Yamel Gao RN Unavailable [phone] Zoila Rivero LPN Unavailable [phone] No, Physician Primary Care Provider Yovani Juarez MD Primary Care Provider [phone] Yovani Alonzo MD Primary Care Provider [phone] Samanta Hurst MD Primary Care Provider [phone] No, Physician Primary Care Provider Kane Rivas MD Primary Care Provider [phone] Catarino Bryant MD Primary Care Provider [phone] Miscellaneous, Not In File Primary Care Provider Unavailable Jeane Mirza NP Primary Care Provider [phone] Kane Rivas MD Primary Care Provider [phone] Encounter Details Date Type Department Care Team (Latest Contact Info) Description 05/29/2018 Orders Only [facility]IN[facility] ProviderThea MD [address] [place] [id number] Social History Tobacco Use Types Packs/Day Years Used Date Smoking Tobacco: Never Assessed Sex and Gender Information Value Date Recorded Sex Assigned at Not on file Legal Sex Male 10:51 PM SUPPLY CATALOG[employer]ER Gender Identity Not on file Sexual Orientation [...] COVID: Suspected 07/27/2023 07/27/2023 07/27/2023 7:12 AM SUPPLY CATALOGUER documented as of this encounter Care Teams Doors Prefitter Relationship Specialty Start Date End Date Yovani Alonzo MD PCP - General 08/22/18 03/31/19 No, Physician PCP - General 04/01/19 04/16/19 Yovani Juarez MD PCP - General 04/17/19 04/17/19 Yovani Alonzo MD PCP - General 04/18/19 06/26/19 Samanta Hurst MD PCP - General 06/27/19 01/04/20 No, Physician PCP - General 01/05/20 03/31/20 Kane Rivas MD [address] [facility] [address] [place] [address] PCP - General 04/01/20 12/12/20 Catarino Bryant MD [address] [place] [address] PCP - General 12/13/20 08/28/21 Miscellaneous, Not In File PCP - General 08/29/21 Jeane Mirza, [employer] [address] [address] PCP - General 09/08/21 09/26/21 Kane Rivas MD [address] [facility] [address] [place] [address] PCP - General 09/27/21 Yamel Gao, RN [employer] 03/11/19 03/11/19 Zoila Rivero LPN [address] [facility] [address] [place] [address] [employer] 03/20/19 03/20/19 documented as of this encounter
--- OUTSIDE RECORDS SUMMARY | 2025-04-18 19:15 | XMS_ITS | Encounter Summary ---
Author Organization [facility] Address [address] [facility] [place] [address] Phone Care Team Providers Care Human Resources Operations Manager Name Role Phone Samanta Hurst MD Unavailable [phone] Kane Rivas MD Primary Care Provider [phone] Encounter Details Date Type Department Care Team (Late st Contact Info) Description 10/21/2024 Lab Requisition [facility] [address] [place] [address] Bairon Solo MD [address] [place] [address] Encounter for screening for malignant neoplasm of prostate Social History Tobacco Use Types Packs/Day Years Used Date Smoking Tobacco: Former Cigarettes Smokeless Tobacco: Never Alcohol Use Standard Drinks/Week Comments No 0 (1 standard drink = 0.6 oz pur e alcohol) Has not drank for over a month [facility] Utilities Answer Date Recorded In the past [...] place to sleep or slept in a long term (including now)? No 10/17/2023 Sex and Gender [...] track(2024 12:21 PM CDT) No Yanci Seay, [facility] Note: Goal/Objective: Decrease depression. Anticipated Time Frame for Goal Completion: 6 months Goal Reviewed with: patient Readiness to change: Ready to change Department associated with goal: [facility] Steps to [...] Comments PSA SCREEN Routine 10/21/2024 4:00 PM BREED TO WEAN PRODUCTION TECHNICIAN Encounter for screening for malignant neoplasm of prostate documented in this encounter Results * PSA SCREEN (10/21/2024 4:00 PM BREED TO WEAN PRODUCTION TECHNICIAN) PSA SCREEN, TOTAL 1.67 <4.00 ng/mL 10/21/2024 6:07 PM BREED TO WEAN PRODUCTION TECHNICIAN [facility] Blood No Phlebotomy Charged / Unknown 10/21/2024 4:00 PM BREED TO WEAN PRODUCTION TECHNICIAN 10/21/2024 4:49 PM BREED TO WEAN PRODUCTION TECHNICIAN Narrative [facility] - 10/21/2024 6:07 PM BREED TO WEAN PRODUCTION TECHNICIAN [employer] Total PSA assay is a Chemiluminescent Microparticle Immunoassay (CMIA) for the quantitative determination of total PSA (both free PSA and PSA complexed to [id number]) in human serum. Total PSA values obtained with different assay methods, including Infante PSA assays, cannot be used interchangeably. us Bairon Solo MD CHEMISTRY ORDERABLES Fi nal Result [facility] [address] [place] [address] documented in this encounter Visit Diagnoses Diagnosis Encounter for screening for malignant neoplasm of prostate Special screening for malignant neoplasm of prostate documented in this encounter Care Teams Human Resources Operations Manager Relationship Specialty Start Date End Date Kane Rivas MD [address] [facility] [address] [place] [address] PCP - General Internal Medicine 11/28/22 Samanta Hurst MD Internal Medicine 05/29/22 documented as of this encounter
== END 2025-04-18 19:13 | disposition left against medical advice (07) ==
PROVIDERS: PCP Internal Medicine
DX: Z53.21 Procedure and treatment not carried out due to patient leaving prior to being seen by health care provider (principal)
CPT/HCPCS: 99199